=== PATIENT | male | born 1950 | race Caucasian/White ===

== ENCOUNTER 2023-02-07 07:43 | Observation (INO) ==
--- NOTE | 2023-01-18 10:21 | PAT Medication Instructions ---
Medication Instructions Date of Service January 18, 2023 Home Medications Medication Instructions Recorded clopidogrel 75 mg tablet (Plavix) 75 mg PO Q2D #45 tabs 03/23/22 losartan 100 mg tablet 100 mg PO HS #90 tabs 06/21/22 nitroglycerin 0.4 mg sublingual 0.4 mg sublingual UD PRN Chest 01/17/23 tablet Pain #25 tabs multivitamin (Multiple Vitamins tablet) 1 tab PO QAM alpha lipoic acid 600 mg capsule 600 mg PO HS aspirin 81 mg tablet,delayed release (Carolin Low Dose Aspirin) 81 mg PO QAM cyanocobalamin (vitamin B-12) 5,000 mcg sublingual tablet (Vitamin B-12) 5,000 mcg PO QAM vitamin B complex 1 tab PO QAM clopidogrel 75 mg tablet (Plavix) 75 mg PO Q2D losartan 100 mg tablet 100 mg PO HS atorvastatin 40 mg tablet 40 mg PO HS nitroglycerin 0.4 mg sublingual tablet 0.4 mg sublingual UD PRN Continue as directed nitroglycerin 0.4 mg sublingual tablet 0.4 mg sublingual UD PRN(if needed) ASK your prescriber and surgeon aspirin 81 mg tablet,delayed release (Carolin Low Dose Aspirin) 81 mg PO QAM clopidogrel 75 mg tablet (Plavix) 75 mg PO Q2D (in order for spinal or epidural anesthesia, Plavix needs to be stopped 72 hours/3 days before surgery. Please check if okay with doctor that prescribes this to you) STOP taking 2 weeks before surgery (or as soon as possible if surgery is within 2 weeks) DO NOT take the morning of surgery multivitamin (Multiple Vitamins tablet) 1 tab PO QAM cyanocobalamin (vitamin B-12) 5,000 mcg sublingual tablet (Vitamin B-12) 5,000 mcg PO QAM vitamin B complex 1 tab PO QAM Take evening before surgery losartan 100 mg tablet 100 mg PO HS atorvastatin 40 mg tablet 40 mg PO HS Other Notes NOTHING TO EAT OR DRINK AFTER MIDNIGHT. If you have any questions please call us at [phone] or [phone] or [phone] or [phone]
--- NOTE | 2023-01-22 15:59 | Anesthesiology Consultation ---
Date of Service January 22, 2023 Assessment & Plan (1) Encounter for pre-operative examination: Chart Review Chart Review: Acceptable Risk for Surgery (pending cardio and PCP clearance ) and Patient seen in Pre Admission Testing - Awaiting cardio clearance 02/06/23 ([place]) - Awaiting PCP clearance 02/06/23 ([place]) - Per cardio workload message 01/22/23= "Yes, okay to hold Plavix for 7 days" (l/m for patient) - Discussed with Dr. Dickerson- patient is NOT an OPJ candidate due to cardiac history (surgeon's office informed) Per PAT appt on 01/22/23, no recent illness/disease exposures, illness related symptoms, or recent illness/disease positive tests. Will leave to surgeon's discretion if preop Covid testing needed Teaching & Discussion Pre-Anesthesia Teaching/Discussion Notes: Instructed NPO after midnight before surgery,except medications with 15 cc of water. Medication instructions provided according to the PAT guidelines. History Surgery Operation Date: 02/07/23 11:00 Proposed Procedures p Right Total Hip Arthroplasty - Con Steele MD Height/Weight Height: 6 ft 2 in Weight: 82.1 kg Allergies Allergy/AdvReac Type Severity Reaction Status Date / Time No Known Allergies Allergy Verified 01/17/23 15:25 Medications Home Medications Medication Instructions Recorded Confirmed Last Taken multivitamin (Multiple Vitamins 1 tab PO QAM 02/13/19 01/17/23 09/17/20 tablet) alpha lipoic acid 600 mg capsule 600 mg PO HS 09/17/20 01/17/23 09/16/20 aspirin 81 mg tablet,delayed 81 mg PO QAM 09/17/20 01/17/23 01/17/22 release (Carolin Low Dose Aspirin) cyanocobalamin (vitamin B-12) 5,000 mcg PO QAM 09/17/20 01/17/23 09/17/20 5,000 mcg sublingual tablet (Vitamin B-12) vitamin B complex 1 tab PO QAM 09/17/20 01/17/23 09/17/20 clopidogrel 75 mg tablet (Plavix) 75 mg PO Q2D #45 tabs 03/23/22 01/17/23 Unknown losartan 100 mg tablet 100 mg PO HS #90 tabs 06/21/22 01/17/23 Unknown atorvastatin 40 mg tablet 40 mg PO HS 01/17/23 01/17/23 Unknown nitroglycerin 0.4 mg sublingual 0.4 mg sublingual UD PRN Chest 01/17/23 01/17/23 Unknown tablet Pain #25 tabs Past Medical History Medical History Idiopathic peripheral neuropathy Bilateral feet- stable Arthritis History of prediabetes Diet controlled CAD (coronary artery disease) Stents x3 (2010) to LAD Follows by Dr. Massey Dyslipidemia HTN (hypertension) Exercise / Class Metabolic Activity II 4-5 Yardwork/Stairs/Walk up hill (one flight of stairs- no chest pain or SOB ) Past Family History Family History Father Hypertension Other No family history of adverse response to anesthesia Past Surgical History Surgical History H/O foot surgery rt neuroma removed Hx of vasectomy [place] teeth removed History of heart artery stent 2010 > 3 stents History of colonoscopy S/P laparoscopic hernia repair inguinal Past Anesthesia History No Hx of Anesthesia Complications and No Family Hx of Anesthesia Complications History of PONV No Hx of PONV and No Hx of Motion Sickness Social History Smoking Status: Never smoker Do You Dip or Chew Tobacco: No Hx Alcohol Use: Yes Alcohol type: beer and wine alcohol intake frequency: holidays/special occasions only Hx Substance Use: No substance use type: does not use Review of Systems - Hx snoring - no witnessed apnea- no hx of sleep study Patient denies chest pain, shortness of breath, dyspnea on exertion, reflux, cough, wheezing, palpitations. No hx of seizures, stroke, VT. No hx of blood clots or blood transfusions Physical Exam Vital Signs VITALS BP 146/74 P 60 TEMP 98.1 SP02 99% RESP 16 Constitutional no acute distress ENMT Mouth: no TMJ clicking Thyromental Distance: < 3.5 Finger Breadths (3.0) Mallampati Class: II Crowns to molars and side teeth Neck + limited neck extension Respiratory normal respiratory effort; no respiratory distress Auscultation: lungs clear to auscultation bilaterally; no wheezes Cardiovascular Rate/Rhythm: regular rate and regular rhythm Heart Sounds: no murmur Vessels: no carotid bruit Musculoskeletal Spine: no pain with cervical ROM Extremities: extremities normal to inspection Psychiatric Orientation: alert Lab Results Anesthesia Preop Results Results Anesthesia Widget: WBC 7.01 K/ul (4.8-10.8) 01/22/23 Hgb 14.3 g/dl (14.0-18.0) 01/22/23 Hct 43.1 % (42.0-52.0) 01/22/23 Plt 174 K/uL (130-400) 01/22/23 Na 138 mmol/L (136-145) 01/22/23 K 4.0 mmol/L (3.5-5.1) 01/22/23 Cl 102 mmol/L (98-107) 01/22/23 CO2 31 mmol/L (21-32) 01/22/23 BUN 16 mg/dl (6-23) 01/22/23 Creat 0.95 mg/dl (0.6-1.4) 01/22/23 Glucose Level 91 mg/dl (70-99(Fasting)) 01/22/23 PT 10.8 Seconds (9.0-12.0) 01/22/23 PTT 28.6 Seconds (21.0-31.0) 01/22/23 INR 1.0 (0.9-1.1) 01/22/23 HA1c 6.0 % (4.5-5.6) H 01/22/23 Urine Color Dark Yellow 01/22/23 Urine Appearance Clear (Clear) 01/22/23 Urine pH 7.5 (4.5-7.5) 01/22/23 Urine Specific [place] 1.022 (1.000-1.030) 01/22/23 Urine Protein Negative (Negative) 01/22/23 Urine Glucose (UA) Negative (Negative) 01/22/23 Urine Ketones Negative (Negative) 01/22/23 Urine Blood Negative (Negative) 01/22/23 Urine Nitrite Negative (Negative) 01/22/23 Urine Bilirubin Negative (Negative) 01/22/23 Urine Urobilinogen Negative (Negative) 01/22/23 Urine Leukocyte Esterase Negative (Negative) 01/22/23 Blood Type A Positive 01/22/23 Antibody Screen NEGATIVE 01/22/23 Testing Electrocardiogram Date: 01/22/23 Findings: + SB @ (55bpm) Minimal voltage criteria for LVH, may be normal variant When compared to EKG from September 17, 2020- no significant change was found per cardio Chest X-Ray Date: 01/22/23 Findings: + NAD FINDINGS: Cardiac mediastinal and hilar silhouettes are within normal limits. Atherosclerosis of the aorta. No pneumothorax, pleural effusion, airspace consolidation or pulmonary edema. Degenerative changes of the shoulders and spine. Other Testing Lower arterial ultrasound 12/20/2022 = no evidence of significant lower extremity arterial occlusive disease bilaterally Neck CTA 09/17/20= Approximately 50% stenosis at the origin and V2 segment of the right vertebral artery. Atherosclerotic involvement of bilateral internal and external carotid arteries are seen without hemodynamically significant stenosis. Head CTA 09/17/20= Mild atherosclerotic involvement without hemodynamically significant stenosis. Irregular lumen of the proximal aspect of the right MCA without significant stenosis.
[~2023-02-07 07:43] MED LIST: ACETAMINOPHEN 500 MG TAB PO SCH; BUPIVACAINE 0.5 % 5 MG/1 ML PF 10ML VIAL ONE; CeleBREX 200 MG CAP PO SCH; FAMOTIDINE 20 MG TAB PO SCH; LR 500ML BOLUS, THEN 15ML/HR IV SCH; LR 60ML/HR IV SCH; MIDAZOLAM HCL 1 MG/ML 2ML VIAL ONE; ROPIVACAINE 0.5% HCL/PF 150 MG, BUPIVACAINE 0.75% MPF 20 ML, EPINEPHrine 0.15 MG, Ketor... INFIL SCH; Scopolamine 1 MG TDSY TD SCH; TRANEXAMIC ACID 1,000 MG **IV Intra-op IV SCH; TRANEXAMIC ACID 1,000 MG **IV Pre-op IV SCH; ceFAZolin 2000MG 2,000 MG/15 ML SYR IV SCH; dexAMETHasone 4 MG TAB PO SCH; traMADol HCL 50 MG TABLET PO SCH
[2023-02-07] MEDS ORDERED: fentaNYL citrate PF 100 MCG/2 ML VIAL ONE (07:44)
--- OUTSIDE RECORDS SUMMARY | 2023-02-07 07:59 | External Medical Summary | Continuity of Care Document ---
Author Name Unknown Organization [facility] [address] [place] [id number] Care Team Providers Care Company Marker Name Role Phone Geraldo Reyes Primary Care Physician [phone] Encounter [facility] [id number] Date(s): 02/04/23 - 02/04/23 [facility] [address] [address] [phone] Encounter Diagnosis Pre-op exam(Discharge Diagnosis) - 02/04/23 Body mass index [BMI] 23.0-23.9, adult(Discharge Diagnosis) - 02/04/23 CAD(Discharge Diagnosis) - 02/04/23 PURE HYPERCHOLESTEROLEMIA(Discharge Diagnosis) - 02/04/23 Prediabetes(Discharge Diagnosis) - 02/04/23 Right hip pain(Discharge Diagnosis) - 02/04/23 Discharge Disposition: Home or Self Care Attending Physician: DO Burns Stephanie Marie Referring Physician: MD Cedric, Con Quiles Allergies, Adverse Reactions, Alerts No Known Allergies Assessment and Plan Extracted from: Title:FCM - pre-op exam for right WALTER Author:DO Burns Stephanie Marie Date:02/04/23 1.Pre-op exam Robinis seen for akash-operative risk stratification. They report no cardiac symptoms at rest or on exertion. He has cardiac pre-op clearance pending with his binder selector scheduled on 02/06. We diddiscuss risks of surgery includingmajor adverse cardiac event, such as PR, cardiacarrest, or . These risks, along with the risk of akash-operative stroke, were discussed with the patient, in light of the benefits of possible surgery.Robin wishes to proceed with the operation. Excluding cardiac pre-op examination with his cardiologistwhich is currentlyscheduled, from PCP perspective Robin is medically optimized for surgery. 2.CAD Follows with cardiology. Stable. No acute changes. See their pre-op examination documentation as scheduled on Saturday, 02/06. 3.PURE HYPERCHOLESTEROLEMIA Continue atorvastatin. 4.Prediabetes Continue monitoring. Most recent A1c 5.8% in August 2022.Encouraged diet and exercise regimen appropriate for patient age and condition. 5.Right hip pain Patient is scheduled for right WALTER on 02/07. Inclusive of time spent reviewing the medical record, [id number] time with the patient, and time spent in documentation, the total minutes spent on this encounter today was 35. Immunizations Given and Recorded Vaccine Date Status Refusal Reason zoster vaccine, inactivated 1 03/11/19 Recorded zoster vaccine, inactivated 03/11/18 Recorded pneumococcal 23-valent vaccine 03/22/17 Given pneumococcal 13-valent vaccine 02/24/16 Given tetanus/diphtheria/pertuss, acel (Tdap) 02/11/15 G iven zoster vaccine live 06/28/12 Recorded tetanus toxoids-diphtheria, Td (Adult) 04/16/07 Re corded 1Result Comment: #2 Medications Alpha Lipoic 300 mg oral tablet Start: 07/20/20 10:35:00 EDT, Note to Pharmacy: take 2 daily Start Date: 07/20/20 Status: Ordered Aspirin Low Dose 81 mg oral enteric coated tablet Start: 04/14/10 15:25:00, 1 tab, PO, Daily, tab Start Date: 04/14/10 Status: Ordered atorvastatin 40 mg oral tablet Start: 07/16/22 9:25:00 EDT, 1 tab, PO, Daily Start Date: 07/16/22 Status: Ordered losartan 100 mg oral tablet Start: 07/16/22 9:25:00 EDT, 1 tab, PO, Daily Start Date: 07/16/22 Status: Ordered Plavix 75 mg oral tablet Start: 04/14/10 15:25:00, See Instructions, 1 tab every other day Start Date: 04/14/10 Status: Ordered Vitamin B Complex Start: 07/20/20 10:35:00 EDT Start Date: 07/20/20 Status: Ordered Vitamin B12 500 mcg oral tablet Start: 07/20/20 10:35:00 EDT, 1 tab, PO, Daily Start Date: 07/20/20 Status: Ordered Mental Status 02/04/23 Barriers to Learning one year None evide nt Mandatory Health Literacy Documentation Yes Health Literacy Communication Barriers N ever Primary Language Citizen Of [place] Problem List Condition Confirmation Course Effective Dates Status H ealth Status Informant Cardiovascular disease Confirmed Active Healthcare maintenance Confirmed Active Hereditary and idiopathic neuropathy Confirmed Active Right hip pain Confirmed Active Traumatic ecchymosis of foot Confirmed Active Right lumbar radiculopathy Confirmed Active Peripheral polyneuropathy Confirmed Active Prediabetes Confirmed Active Lumbar foraminal stenosis Confirmed Active Tubular adenoma of colon Confirmed Active Weight monitoring Confirmed Active Diagnosis Diagnosis Type Effective Dates Health Status Clinical Service Informant CAD Discharge Diagnosis 02/04/23 PURE HYPERCHOLESTEROLEMIA Discharge Diagnosis 02/04/23 Prediabetes Discharge Diagnosis 02/04/23 Right hip pain Discharge Diagnosis 02/04/23 Body mass index [BMI] 23.0-23.9, adult Discharge Diagnosis 02/04/23 Non-Specifie d Pre-op exam Discharge Diagnosis 02/04/23 Procedures Procedure Date Related Diagnosis Body Site Status Colonoscopy 1, 2 07/26/22 Complete d Lumbar epidural injection 01/22/22 Completed MRI of lumbar spine 3 10/20/[address] of head 4 09/17/20 Completed X-ray of left foot 5 08/05/20 Comp leted Colonoscopy 6 06/21/17 Completed Laparoscopic repair of ingui nal hernia 7 05/31/14 Completed 1 Stent placed 03/[address] angio of head w con [address] of neck with con 9 Com pleted Neuromo removal to right foot 10 Completed 1COLO to cecum, 3 mm TC polyp CF, 4 mm sigmoid polyp CS, diverticulosis 2Pathology results demonstrated 2 tubular adenoma. Repeat colonoscopy in 5 years 3Mild multilevel degenerative disc disease and moderate facet arthrosis within the lumbar spine. Platent central canal. Moderate multilevel neural foraminal stenosis 1.9 cm focus of increased T2 signal along the right anterior aspect of the inferior endoplate of L2. This is likely degerative and likely reflects discogenic change. Marrow edema from nondisplaced fracture could appear similar althouh is considered less likely. 4No acute intracranial hemorrhage no midline shift or space occupying lesions 5[facility] Impression: 1. No acute bony abnormality is identified 2. Degenerative change and heel spurs 6The entire examined colon is normal. The examined portion of the ileum was normal. The distal rectum and anal verge are normal on retroflexion view. No specimens collected. 7Right 8mild atherosclerotic involvment without hemodynamically significant stenosis 91. 50 stenosis at the origin and V2 segment of the right vertebral artery [id number] Vital Signs Most recent to oldest [Reference Range]: 1 Height 189 cm (02/04/23 8:03 AM) Patient Weight 82.6 kg (02/04/23 8:03 AM) Body Mass Index 23.12 kg/m2 (02/04/23 8:03 AM) Heart Rate 69 bpm (02/04/23 8:03 AM) Respiratory Rate 12 br/min (02/04/23 8:03 AM) Blood Pressure 158/78mmHg (02/04/23 8:03 AM) Cuff Pulse Pressure 80 mmHg (02/04/23 8:03 AM) Social History Social History Type Response Smoking Status Never smoked cigaret kavita Sex Male FCM Outpt Note * DO Burns Stephanie Marie: PERFORM Event Display: FCM Outpt Note Authored Date: Chief Complaint preop clearance total right hip replacement History of Present Illness Preoperative evaluation Requested by/Surgeon: Dr. Steele for right WALTER scheduled for this upcoming , 02/07 Planned surgery:intermediate risk (intraperitoneal, intrathoracic, CEA, head/neck, ortho, prostate) Planned anesthesia:general Exercise tolerance:4-10 METs (golfing, walking) Bleeding tendency/history: on Plavix since 2010 after having cardiac stents placed; follows withcardiology and has cardiology pre-op appt as noted below; no abnormal hx of bleeding Substance use per social history in EHR Prior response to anesthesia: none Revised Cardiac Risk Index: Score [1] [_] High Risk Surgery [x] Ischemic Heart Disease [_] History of CHF [_] History of cerebrovascular disease [_] Insulin therapy for DM [_] Pre-op Cr >2 Follows w/ Dr. Massey for cardiology; last had testing about 1 month ago and everything was good at that time. Has pre-op appointment with cardiology on 02/06/30 (the day prior to scheduled orthopedic surgery). Takes BP at home. Typically in 130s/70s. Physical Exam Vitals & Measurements HR:69(Monitored) RR:12 BP:158/78 SpO2:98% HT:189cm WT:82.6kg WT:82.600kg(Dosing) BMI:23.12 PHQ2 Data(Data Documented on:02/04/2023 08:03) Emotional health assessment NEGATIVE GENERAL: No acute distress. Well developed and well nourished. Vital signs reviewed as above. EYES: EOMI. Anicteric sclerae. HENT: Moist mucous membranes. RESPIRATORY: Clear to auscultation bilaterally.No wheezing, rales, orrhonchi. CARDIOVASCULAR: Regularrate and rhythm. ABDOMEN: Soft,[id number]. Normal bowel sounds. EXTREMITIES: No gross deformities. SKIN: Warm, dry. NEUROLOGIC: Alert and oriented. Normal speech. No gross focal neurological deficits. PSYCHIATRIC: Cooperative. Appropriate mood and affect. Assessment/Plan 1.Pre-op exam Robinis seen for akash-operative risk stratification. They report no cardiac symptoms at rest or on exertion. He has cardiac pre-op clearance pending with his binder selector scheduled on 02/06. We diddiscuss risks of surgery includingmajor adverse cardiac event, such as PR, cardiacarrest, or . These risks, along with the risk of akash-operative stroke, were discussed with the patient,in light of the benefits of possible surgery.Robin wishes to proceed with the operation. Excluding cardiac pre-op examination with his cardiologistwhich is currentlyscheduled, from PCP perspective Robin is medically optimized for surgery. 2.CAD Follows with cardiology. Stable. No acute changes. See their pre-op examination documentation as scheduled on Saturday, 02/06. 3.PURE HYPERCHOLESTEROLEMIA Continue atorvastatin. 4.Prediabetes Continue monitoring. Most recent A1c 5.8% in August 2022.Encouraged diet and exercise regimen appropriate for patient age and condition. 5.Right hip pain Patient is scheduled for right WALTER on , 02/07. Inclusive of time spent reviewing the medical record, [id number] time with the patient, and time spent in documentation, the total minutes spent on this encounter today was 35. Problem List/Past Medical History Ongoing CAD Cardiovascular disease Healthcare maintenance Hereditary and idiopathic neuropathy Lumbar foraminal stenosis Peripheral polyneuropathy Prediabetes PURE HYPERCHOLESTEROLEMIA Right hip pain Right lumbar radiculopathy Traumatic ecchymosis of foot Tubular adenoma of colon UNSPECIFIED INFLAMMATORY AND TOXIC NEUROPATHIES Weight monitoring Procedure/Surgical History Colonoscopy (07/26/2022)Lumbar epidural injection (01/22/2022)MRI of lumbar spine (10/20/2021)CT of head (09/17/2020)X-ray of left foot (08/05/2020)Colonoscopy (06/21/2017)Laparoscopic repair of inguinal hernia (05/31/2014)Neuromo removal to right foot1 Stent placed 03/2010CT of neck with conCT angio of head w con Medications alpha-lipoic acid(Alpha Lipoic 300 mg oral tablet) aspirin(Aspirin Low Dose 81 mg oral enteric coated tablet), 1 tab, PO, Daily atorvastatin(atorvastatin 40 mg oral tablet), 40 mg= 1 tab, PO, Daily clopidogrel(Plavix 75 mg oral tablet), See Instructions cyanocobalamin(Vitamin B12 500 mcg oral tablet), 500 mcg= 1 tab, PO, Daily losartan(losartan 100 mg oral tablet), 100 mg= 1 tab, PO, Daily multivitamin(Vitamin B Complex) Allergies NKA Social History Smoking Status Never smoked cigarettes Alcohol Use:Current Frequency:1-2 times per month Employment/School Status:Employed Substance Abuse - Denies Substance Abuse Tobacco - Denies Tobacco Use Family History Family history is unknown Immunizations Vaccine Date Status zoster vaccine, inactivated 2019 Recorded Comments : #2 zoster vaccine, inactivated 2018 Recorded pneumococcal 23-valent vaccine 03/22/2017 Given pneumococcal 13-valent vaccine 02/24/2016 Given tetanus/diphtheria/pertuss, acel (Tdap) 02/11/2015 Given zoster vaccine live 06/28/2012 Recorded tetanus toxoids-diphtheria, Td (Adult) 04/16/2007 Recorded Recommendations Health Maintenance Pending(in the next year) OverDue Adult Influenza Vaccine due09/08/22and every 1year Due Adult COVID-19 Vaccination due02/06/23Unknown Frequency Hepatitis C Screening due02/06/23One-time only Shingles Vaccine due02/06/23One-time only Due In Future Medicare Annual Wellness Visit not due until07/24/23and every 1year Body Mass Index not due until02/04/24and every 1year Satisfied(in the past 1 year) Satisfied Body Mass Index on02/04/23.Satisfied by SADE Michel Paul Lipid Screening on08/13/22.Satisfied by Contributor_system, [id number] Medicare Annual Wellness Visit on07/23/22.Satisfied by DO Reyes Franklin J Electronic Signature on File Electronically Reviewed/Signed by: Michelle Burns DO Author Signature Dt/Tm:02/06/2023 09:07 AM Department of Family Medicine SMB Patient Care team information Care Team Personnel Name: DO Reyes Franklin J Position: Physician - Family Med Member Role: Primary Care Provider Address: Address: [facility] [address] [address] Name: Yaw Mccullough Position: HIS Supervisor_P Member Role: HIS Lifetime Care Team Related Persons Name: JULY CRISTINA Address: home [address], [place] [id number]
--- NOTE | 2023-02-07 08:37 | History & Physical Bridge Note ---
Date of Service February 07, 2023 History & Physical Bridge Note I have examined the patient, reviewed the History & Physical and in the interval since the performance of the History & Physical I have noted the following changes of clinical significance: note was made of a 1x2 cm reddish purple cheryle on his buttock. Appears to be a bruise since he was on plavix, although he doesn't remember hitting it on anything. No surrounding erythema or evidence of infection. It's not itchy. Discussed with patient that this does not appear infected, so should be safe to proceed with minimal increase in risk. He would like to proceed, which is reasonable. Otherwise, no changes noted
[2023-02-07] MEDS ORDERED: ORTHO JOINT ANESTHETIC ONE (08:47)
[2023-02-07] MEDS ORDERED: ATROPINE SULFATE 0.1 MG/ML 10ML SYR IV PRN (09:09)
[2023-02-07] MEDS ORDERED: ePHEDrine sulfate 50 MG/ML AMP IV PRN (09:09)
[2023-02-07] MEDS ORDERED: LABETALOL HCL IV 5 MG/ML 20ML IV PRN (09:09)
[2023-02-07] MEDS ORDERED: fentaNYL citrate PF 100 MCG/2 ML VIAL IV PRN (09:09)
[2023-02-07] MEDS ORDERED: PHENYLEPHRINE 100MCG/ML 5ML SYR IV PRN (09:09)
[2023-02-07] MEDS ORDERED: ONDANSETRON INJ 2 MG/ML 2 ML VIAL IV PRN ×2 (09:09→11:11)
[2023-02-07] MEDS ORDERED: FLUCONAZOLE 200 MG/100 ML BAG IV ONE (09:28)
[2023-02-07] MEDS ORDERED: PHENYLEPHRINE 100MCG/ML 10ML SYR IV ONE (10:12)
[2023-02-07] MEDS ORDERED: LIDOCAINE 2% 2 ML VIAL/AMP(20MG/ML) INFIL ONE (10:12)
[2023-02-07] MEDS ORDERED: ONDANSETRON INJ 2 MG/ML 2 ML VIAL ONE (10:12)
[2023-02-07] MEDS ORDERED: PHENYLEPHRINE HCL 10 MG/ML VIAL ONE (10:12)
[2023-02-07] MEDS ORDERED: NALOXONE HCL 0.4 MG/1 ML VIAL/CARP IV PRN (11:11)
[2023-02-07] MEDS ORDERED: diphenhydrAMINE 50 MG/ML VIAL IV PRN (11:11)
[2023-02-07] MEDS ORDERED: METOCLOPRAMIDE HCL INJ 5 MG/ML 2 ML VIAL IV PRN (11:11)
[2023-02-07] MEDS ORDERED: MAGNESIUM HYDROXIDE SUSP 30 ML UDC PO PRN (11:11)
[2023-02-07] MEDS ORDERED: TAMSULOSIN HCL 0.4 MG CAP PO PRN (11:11)
[2023-02-07] MEDS ORDERED: ALUMINUM/MAGNESIUM SUSP 30 ML UDC PO PRN (11:11)
[2023-02-07] MEDS ORDERED: bisacodyL 10 MG SUPP PR PRN (11:11)
[2023-02-07] MEDS ORDERED: oxyCODONE HCL IR 5 MG TAB (IMMEDIATE RELEASE) PO PRN (11:11)
--- NOTE | 2023-02-07 11:11 | Operative Report ---
Post Operative Report Pre & Post Diagnosis Operation Date: 02/07/23 09:10 Pre-Op Diagnosis: Right hip osteoarthritis. Post-Op Diagnosis: Right hip osteoarthritis. I identified the patient and participated in the time-out.: Yes Procedure Operation Date: 02/07/23 09:10 Actual Procedures p Right Total Hip Arthroplasty--Uncemented(Left) - Con Steele MD Surgeon Con Steele MD Food Prep Worker Diane Zarate PAPetra Estimated Blood Loss 100 Findings Consistent with Post-Op Diagnosis Specimens femoral head Description of Procedure I was present during the case assisting with positioning, prepping, draping, wound retraction, wound closure, dressing and abduction pillow placement. No fellow present. Please see Dr. Steele procedure note for specifics of the case. I attest to the content of the Intraoperative Record and any orders documented therein. Any exceptions are noted below.
--- NOTE | 2023-02-07 11:13 | Operative Report ---
Post Operative Report Pre & Post Diagnosis Operation Date: 02/07/23 09:10 Pre-Op Diagnosis: Right hip osteoarthritis. Post-Op Diagnosis: Right hip osteoarthritis. I identified the patient and participated in the time-out.: Yes Procedure Operation Date: 02/07/23 09:10 Actual Procedures p Right Total Hip Arthroplasty--Uncemented(Left) - Con Steele MD Surgeon Con Steele MD Html Developer DOLORES Zarate PA-C. No resident or fellow was available to assist. Estimated Blood Loss 100 Findings Consistent with Post-Op Diagnosis Specimens Right femoral head Anesthesia Type Spinal MAC Complications none Disposition Disposition: Recovery Room Indications 72-year-old gentleman with right hip arthritis refractory to conservative management. X-rays demonstrate joint space narrowing, subchondral sclerosis, and osteophyte formation. I had a long discussion with him about the risks and benefits of surgery, alternatives to surgery, and expected outcomes. After reviewing all these he elected to proceed with surgery. All questions were answered. Informed consent was signed. Description of Procedure Patient was identified in the preoperative holding area where the surgical site, right hip, was marked. Inspection of the skin revealed a red cheryle which was not itchy or painful. Did not appear infected however out of abundance of caution for possible fungal infection we did elect to give him IV fluconazole intraoperatively. A spinal anesthetic was placed, then the patient was brought back to the main operating room, placed in the operating table and moved into the lateral decubitus position. Axillary roll was placed. All bony prominences were padded. Perioperative antibiotics and tranexamic acid 1 gram IV were administered in addition to the fluconazole. The operative extremity was prepped and draped in the normal sterile fashion. Prior to incision a multidisciplinary timeout was called. All in the room were in agreement. We began by making an incision for a posterior approach to the hip. We dissected down through subcutaneous tissues to the level of the fascia. The fascia was incised in line with the incision. Charnley bow was placed. Fatty tissue was reflected posteriorly off the back of the greater trochanter to expose the piriformis and short external rotators of the hip. Quadratus femoris was taken off the femur subperiosteally. The piriformis and short external rotators were dissected off the posterior aspect of the hip. A box cut was made in the capsule. Inferior hip capsule was released off the femur. The femoral head was dislocated. The femoral neck cut was made at our preoperative template. The acetabulum was then exposed. The labrum was sharply excised. Contents of the cotyloid fossa were removed with electrocautery. We then began reaming at a size 8 mm less than our preoperative template. We reamed up by [address] the way up to a size 60 mm cup. This gave us good bleeding cancellus bone circumferentially. The acetabulum was then irrigated out and dried. The real Novato Gription cup was then impacted down into position with 45 degrees of lateral opening and 25 degrees of anteversion. Two cancellous bone screws were placed up into the ilium. Excellent fixation was obtained. A trial liner for a 36 mm femoral head was then placed. Next we turned our attention to the femur. The lateral neck was removed with a box osteotome. Intramedullary guide was used to establish the intramedullary canal. We then broached all the way up to a size 10. We began trialing with a high offset neck and a +5 head. Hip was reduced. Leg lengths were close to symmetric. The hip was stable in extension and external rotation, and stable in the sleeper position. At 90 degrees of hip flexion the hip could be internally rotated 35 degrees before levering out of the cup. I wanted to get a little bit better stability, therefore the femoral head neck segment was removed and the acetabulum was reexposed. The 36 neutral trial was removed and we switched this out for a +4 face changing liner with the high side placed posterior superiorly. The same femoral head neck segment was then reattached to the femoral trial and the hip was reduced. Leg lengths were symmetric. Remained stable in extension and external rotation. Still was stable in the sleeper position. At 90 degrees hip flexion he could be internally rotated 50 degrees prior to levering out of the cup. I was much more happy with this stability exam. Therefore, the hip was dislocated and the femoral trial was removed. The acetabulum was re- exposed, and the trial liner was removed. Vendor hole eliminator screw was placed. A +4 face changing Altrx polyethylene liner for a 36 mm femoral head was then impacted into the shell at the same position as the femoral trial. The locking mechanism was checked to ensure that it had engaged which it had. The femur was re-exposed. The femoral canal was irrigated and dried. The real size 10 high offset Actis femoral stem was opened up. This was impacted down into position. The 36 mm ceramic femoral head with +5 mm offset was opened up and gently impacted down onto the trunnion. The hip was atraumatically reduced. Another 1 gram of IV tranexamic acid was started prior to closure. The wound was irrigated out with sterile Betadine solution. The periarticular injection cocktail was then placed. The short external rotators, piriformis, and posterior capsule were repaired through drill holes in the greater trochanter using #2 Vicryl. The fascia was run with a looped #1 PDS. The subcutaneous layer was closed with #1 PDS. The dermal layer was closed with 2-0 Vicryl. Zip line was used for the skin followed by a Silverlon dressing. A compressive dressing was then placed. The patient was then rolled supine. Leg lengths were rechecked and were symmetric. An abduction pillow was placed. Sedation was lifted and the patient was transferred to the recovery room in stable condition. Summary of implants: Depuy Novato Gription Acetabular Shell Sector Cup, 60 mm outer diameter 2 Novato Cancellous bone screws, 6.5 x 40 and 25 mm Vendor hole eliminator Novato Altrx Polyethylene Acetabular Liner, +4 face changing, with a 36 mm inner diameter DePuy Actis collared cementless Femoral stem, 12/14 taper, size 10 high offset 36 mm ceramic femoral head with +5 offset Postoperative course: Patient will be admitted overnight from the recovery room. Patient will be weightbearing as tolerated with posterior hip precautions. Restart Plavix and aspirin tomorrow for DVT prophylaxis. Will give him 1 week of fluconazole and recheck his skin at the 1 week follow-up. I attest to the content of the Intraoperative Record and any orders documented therein. Any exceptions are noted below.
[2023-02-07] MEDS ORDERED: SODIUM CHLORIDE 0.9% 1,000 ML IV SCH (11:15)
[2023-02-07] MEDS ORDERED: NITROGLYCERIN SL 0.4 MG/TAB TAB SL PRN (11:15)
--- NOTE | 2023-02-07 12:22 | Anesthesiology Progress Note ---
Date of Service February 07, 2023 Anesthesia Post Procedure Vital Signs Vital Signs: Temp Pulse Pulse Resp BP Pulse Ox O2 Del Method 02/07/23 12:05 36.3 C L 51 L 17 103/55 L 100 Room Air 02/07/23 11:55 36.3 C L 60 14 114/54 L 100 Room Air 02/07/23 11:45 45 L 8 L 99/49 L 100 Oxymask 02/07/23 11:35 49 L 10 L 100/48 L 100 Oxymask 02/07/23 11:25 51 L 15 108/49 L 100 Oxymask 02/07/23 11:15 48 L 9 L 95/46 L 100 Oxymask 02/07/23 11:06 36.2 C L 58 L 16 110/49 L 100 Oxymask 02/07/23 08:42 36.5 C 70 20 154/75 H 99 Room Air O2 Flow Rate 02/07/23 12:05 02/07/23 11:55 02/07/23 11:45 3 02/07/23 11:35 3 02/07/23 11:25 5 02/07/23 11:15 5 02/07/23 11:06 7 02/07/23 08:42 Transfer of Care Handoff Completed per policy Notes Mental Status: alert / awake / arousable Patient Amnestic to Procedure: Yes Nausea / Vomiting: adequately controlled Pain: adequately controlled Airway Patency, RR, SpO2: stable & adequate BP & HR: stable & adequate Hydration State: stable & adequate Neuraxial Anesthesia: was administered and sensory block is resolving Anesthetic Complications: no major complications apparent and Pt Satisfied with anesthetic care Notes: The patient did well. He is moving both legs. I spoke to him to watch for any new onset numbness or weakness starting tomorrow since he takes clopidogrel and required more than one attempt for his spinal. The patient was told to let his nurse know or go to the ER immediately for any new onset of numbness or weakness. He agrees with this plan.
--- NOTE | 2023-02-07 13:15 | XRay Report ---
SINGLE VIEW PELVIS CLINICAL HISTORY: Postoperative examination. FINDINGS: 2 AP, portable, supine views of the hips and lower pelvis are compared to study dated 01/22. The skeletal structures are osteopenic. A bipolar right hip arthroplasty is in near anatomic a lignment. At least 2 cortical lag screws transfix the acetabular cup. No acute fracture is seen. Subc utaneous gas and soft tissue edema overlying the right hip are expected postsurgical changes. Moderat e arthritic change and joint space narrowing seen in the left hip. There is near complete bony fusion of the pubic symphysis. Surgical clips project over the scrotum. IMPRESSION: Expected postsurgical findings status post right hip arthroplasty. No acute fracture is s een. Electronically signed by: Bebeto Cardona M.D. 02/07/2023 1:14 PM
[2023-02-07] MEDS: ACETAMINOPHEN 500 MG TAB PO SCH (14:53)
[2023-02-07] MEDS: KETOROLAC TROMETHAMINE 15 MG/ML VIAL IV SCH ×2 (14:53→17:36)
[2023-02-07] MEDS: Scopolamine CHECK PATCH PLACEMENT SCH (14:53)
[2023-02-07] MEDS ORDERED: TRANEXAMIC ACID / 0.7% NACL 1,000 MG/100 ML BAG IV SCH (18:00)
[2023-02-07] MEDS: ceFAZolin 2000MG 2,000 MG/15 ML SYR IV SCH (18:20)
[2023-02-07] MEDS: SENNA 8.6 MG TAB PO SCH (20:40)
[2023-02-07] MEDS: DOCUSATE SODIUM 100 MG CAP PO SCH (20:41)
[2023-02-07] MEDS: ATORVASTATIN 40 MG TAB PO SCH (20:41)
[2023-02-07] MEDS ORDERED: NON-FORMULARY MEDICATION (Alpha Lipoic Acid 600 mg Capsule) PO SCH (21:00)
[2023-02-07] MEDS ORDERED: LOSARTAN POTASSIUM 50 MG TAB PO SCH (21:00)
[2023-02-08] MEDS: KETOROLAC TROMETHAMINE 15 MG/ML VIAL IV SCH ×2 (02:23→06:00)
[2023-02-08] MEDS: ACETAMINOPHEN 500 MG TAB PO SCH ×3 (02:23→16:36)
[2023-02-08] MEDS: ceFAZolin 2000MG 2,000 MG/15 ML SYR IV SCH (02:23)
[2023-02-08] MEDS: Scopolamine CHECK PATCH PLACEMENT SCH ×3 (02:24→16:37)
[2023-02-08 07:15] LABS: Basophils # (auto) 0.01 K/uL (0.00-0.20); Basophils % (auto) 0.1 %; Hematocrit (blood only) 34.8 % (42.0-52.0); Immature Granulocytes # (auto) 0.14 K/uL (0.01-0.20); Immature Granulocytes % (auto) 0.8 %; Lymphocytes # (auto) 0.93 K/uL (1.20-3.40); Lymphocytes % (auto) 5.3 %; Mean Corpuscular Hemoglobin 30.5 pg (25.0-34.0); Mean Corpuscular Hgb Conc 34.5 g/dL (32.0-36.0); Mean Corpuscular Volume 88.3 fL (80.0-100.0); Mean Platelet Volume 11.2 fL (9.4-12.4); Monocytes # (auto) 1.17 K/uL (0.11-0.59); Monocytes % (auto) 6.6 %; Neutrophils # (auto) 15.42 K/uL (1.40-6.50); Neutrophils % (auto) 87.2 %; Platelet Count 156 K/uL (130-400); RDW Coefficient of Variation 12.9 % (11.5-14.5); RDW Standard Deviation 41.8 fL (36.4-46.3); Red Blood Count 3.94 M/uL (4.70-6.10); White Blood Count 17.67 K/ul (4.8-10.8)
[2023-02-08 07:40] LABS: BUN Creatinine Ratio 21.2 (10-20); Calcium 8.7 mg/dl (8.6-10.3); Creatinine Clr Calc Pharmacy 72.5 ml/min; Est GFR (African American) 82.2 ml/min; Est GFR (Non-African American) 70.9 ml/min; Potassium 4.4 mmol/L (3.5-5.1)
[2023-02-08] MEDS ORDERED: dexAMETHasone 4 MG TAB PO SCH (08:00)
[2023-02-08] MEDS: DOCUSATE SODIUM 100 MG CAP PO SCH ×2 (09:02→21:08)
[2023-02-08] MEDS: MULTIVITAMIN TAB PO SCH (09:03)
[2023-02-08] MEDS: VITAMIN B COMPLEX TAB PO SCH (09:03)
[2023-02-08] MEDS: CYANOCOBALAMIN (B-12) 2,500 MCG TABLET PO SCH (09:03)
[2023-02-08] MEDS: ASPIRIN 81 MG ECTAB PO SCH (09:03)
--- NOTE | 2023-02-08 09:25 | Discharge Summary ---
Date of Service February 08, 2023 Admission HPI Per Admitting Provider History of Present Illness Patient is a 72-year-old male here today for preoperative history and physical for right total hip arthroplasty with Dr. Steele. Patient complains of right sided back pain starting 1.5 years ago. He was following with Dr. Logan and has had 2 epidural injections without significant change in symptoms. He was then evaluated by Dr. Crawford who suggested it was a hip problem. When in a grocery store he is able to walk upright with the cart. He has difficulty putting on socks secondary to pain and will have groin pain with internal rotation. He previously had an ultrasound guided right femoroacetabular cortisone injection on 04/10/2022 without symptom relief. He also mentions bilateral leg weakness/fatigue with walking up stairs. He has a history of CAD and was evaluated by his compactor driver who did not see a vascular problem but is having further testing. [1] His symptoms have not changed since his last visit. Patient is not taking any pain medication. His pain keeps him up at night depending on which side he sleeps on and has experienced much throbbing in his lower leg. Patient has tried Gabapentin and Advil which was not successful in relieving his pain. He has much pain with walking, sitting for a prolonged period of time, and after golfing and playing pickleball. Patient has previously had a cortisone injection to his hip and back. He is currently on Plavix and has previously stopped this due to prior surgery. Patient denies history of MRSA and has no latex or rubber glove allergy. He does not have a pacemaker or diabetes. [1] he had 3 stents placed most recent March 2010. Admission Exam Per Admitting Provider Physical Exam Vitals & Measurements T: 36.6 C HR: 69 (Monitored) BP: 140/68 SpO2: 100% HT: 189 cm WT: 82 kg WT: 82.000 kg (Dosing) BMI: 22.96 General: Pt is well nourished, seated on the exam table AA&O, in NAD, calm and cooperative during exam HENT: Nontraumatic, no gross deformity, hearing and vision grossly in-tact, PERRL Heart: +S1, +S2, RRR, no murmurs appreciated Lungs: CTABL, no wheezing appreciated Focusing on the patient's right lower extremity: Palpable DP pulses, easier felt on left than right Palpable PT pulses Some hair loss on his toes ROM: Flexion 90/ Abduction 20/ External rotation 45/ Internal rotation 0 Positive Log roll Positive FABIR, knee is about 26 inches off the table Negative Stinchfield test No tenderness over greater trochanter [2] Principal Diagnosis Right hip osteoarthritis Discharge Exam Right hip: Outer dressing was removed. Silverlon is clean dry intact and left in place. Patient is able to perform active straight leg raise test. He is able to actively dorsi and plantarflex without issue. He has no pain with logroll testing. He does experience a slight twinge of pain with light passive internal rotation. He has no pain with passive hip flexion near 90 degrees or with external rotation. He is neurovascularly intact in the right lower extremity. His quad strength is 4 out of 5. Discharge Data Allergies Allergy/AdvReac Type Severity Reaction Status Date / Time No Known Allergies Allergy Verified 02/07/23 08:07 Procedures Performed Operation Date: 02/07/23 09:10 Actual Procedures p Right Total Hip Arthroplasty--Uncemented(Left) - Con Steele MD Hospital Course (1) S/P total hip arthroplasty: Patient had an uneventful overnight stay following total hip arthroplasty. He is doing very well this morning and very pleased with the results of surgery. Plan is to discharge home later this morning with in-home physical therapy beginning tomorrow with [facility]. Total hip precautions reviewed Weightbearing as tolerated with walker assistance Abduction pillow use x 6 weeks Ice with easy wrap DVT prophylaxis with aspirin and Plavix, as well as DAVID stockings Pain controlled p.o. medication P.o. Diflucan for fungal rash on hip Keep Silverlon dressing in place until follow-up Plan is to discharge home later this morning with in-home physical therapy for the first 2 weeks Follow-up advanced orthopedics as previously scheduled With questions contact our clinic at [phone] Total Time Total Time Spent Total Time Spent (In Minutes): 20 mins Discharge Plan Discharge Items Patient Disposition: Home - Home Health Services Reason For Visit: POST SURGICAL CARE Discharge Diagnosis: Right Hip Osteoarthritis Activity: As commented below Lifting: None Bathing: Keep incision dry Bathing Comment: May shower tomorrow Sexual Activity: Wait until after follow-up appointment Exercise/Sports: Wait until after follow-up appointment Weightbearing Comment: as tolerated with walker assistance Non-emergency contact: Surgeon Call non-emergency contact if: you have any medication questions, your temperature is above 101.5, your wound has increased drainage and your wound pain has increased Follow-up/Referrals: Geraldo Reyes, [Primary Care Provider] - Diet: Heart Healthy Addtl Attending Provider Instructions: Post-operative Instructions Dear Patient and Family/Friends, Before you are discharged from the hospital, it is important to know what to expect when you get home after surgery. To that end, we have created this sheet of discharge instructions which covers many commonly asked questions. Make sure you go through this sheet in its entirety with your nurse before you are discharged. Please note that we will go over the specifics of your surgery and recovery when you return for your first post-operative visit. Sincerely, Dr. Steele Medications 1. Oxycodone 5 mg: take 1-2 tabs every 4-6 hours as needed for post operative pain. This will be sent to your pharmacy. 2. Diclofenac Sodium 75 mg: take 1 tab twice daily for post operative pain and inflammation relief. This will be sent to your pharmacy with 1 refill. 3. Resume your daily Plavix and Aspirin for blood clot prevention 4. Extra strength Tylenol 500 mg: take 2 tabs every 6-8 hours as needed for additional pain relief. Please purchase. 5. Diflucan 200 mg: take 1 tab daily for next 7 days for Right hip fungal skin issue. This was also sent to your pharmacy. Pain Expect to be in a fair amount of pain after surgery. Remember, our goal is not to eliminate your pain, but to make it tolerable. It is a good idea to stay ahead of your pain by taking the medications you were prescribed once you get home. Typically, the pain starts improving 3-7 days after surgery. You should start weaning off the narcotic pain medication (oxycodone, hydrocodone, hydromorphone, morphine) as soon as your pain improves. Please call our office if your pain is not adequately controlled. Ice Ice your operative site at least 5 times a day for 15-30 minutes at a time. Make sure you have a thin cloth between the ice or cooling unit and your skin to prevent serna bite. This is especially important if you received a nerve block. Continue icing your operative site for the first 5-7 days after surgery, then as needed. Diet/Nausea/Vomiting Start by drinking clear liquids and eating crackers. If you can tolerate this, then you may resume your normal diet. If you feel nauseated or vomit, take Zofran/ondansetron (if prescribed). Please call our office if you have intractable nausea or vomiting, or, if after hours, you may go to the Emergency Room for help. Constipation Constipation is a common side effect of narcotic pain medication. If you have not had a bowel movement within 2 days after surgery, we recommend purchasing an over the counter laxative such as Milk of Magnesia, Dulcolax, or Miralax from a local pharmacy, and taking it as instructed. Call our clinic if any questions. Slings and Braces If you were placed in a sling or brace, it must be worn at all times, including sleep. You may remove your sling or brace for physical therapy, home exercises, and showering. The length of time you will be in your brace and range of motion restrictions depends on what surgery you had; these details will be reviewed at your first post-operative appointment. Nerve block The anesthesia team sometimes places a nerve block to help with post-operative pain control. This results in significant numbness and inability to move the extremity. The nerve block usually wears off in 8-12 hours, but sometimes can last up to 24 hours. Please call our office if you are still unable to move your extremity after 24 hours, unless you received a pain pump to take home. Nerve blocks typically wear off quickly, so start taking pain medication as soon as you start feeling soreness near your surgical site. Weight bearing and Range of Motion. Do not bear any weight through your operative extremity immediately after surgery. If you had upper extremity surgery, do not lift anything with that arm. If you are in a knee brace, keep it locked in place until your follow-up. We will discuss your weight bearing, range of motion, and lifting restrictions in detail at your first post-operative appointment. Continuous Passive Motion (CPM) Machine If you were prescribed a CPM machine, it will start after your first post- operative appointment, at which time we will give you instructions on the range of motion settings and duration of treatment Physical therapy You will be given a prescription for physical therapy or occupational therapy at your first post-operative appointment. Typically, patients start therapy within 1 week of surgery Wound care and showering We will inspect your wound at your first post-operative visit, and may do a dressing change at that time. Most patients will be in a water-proof dressing that is removed 14 days after surgery. It is normal to see some dried blood on the dressing. Do not remove your dressing, paper strips or sutures yourself unless you are given permission. Showering is allowed the day after surgery. Do not scrub or remove any dressings. The wound should not be submerged underwater (i.e. in a bathtub or pool) until 4 weeks after surgery DAVID stockings If you were given white stockings, these are to be worn at all times except to shower (on both legs) for the first 2 weeks after surgery. Driving You may not drive while taking narcotic pain medication or while in a cast, splint, sling or brace. You, the patient, need to make the final determination about when you are safe to drive, however, the earliest you may consider driving after surgery is below: Hand/Wrist/Elbow Surgery: 3 days Shoulder Surgery: 2 weeks Hip,/Knee/Ankle Surgery: 4 weeks Fracture repair: 6 weeks Return to Work Your return to work depends on what surgery was done and what type of work you do. Please bring any paperwork your employer needs completed to your first post-operative visit. Also, bring a description of your job duties, as this helps us to understand what risks you may face at work. Travel Avoid long distance travel (greater than 1 hour) in airplanes and cars for the first 6 weeks after surgery. If you must travel, you need to have a Doppler ultrasound done before you travel to rule out a blood clot in your legs. Follow-up Please follow up at our office next 02/14/23 @ 2:30 PM, with Diane Zarate PA-C, for a dressing change. When to call the office It is normal to have swelling and bruising in the limb that was operated on. This will improve with time. It is also normal to have fevers for the first 2 days after surgery. Reasons you should call your doctor include: Uncontrolled pain; Nausea, vomiting, or constipation that does not improve with medication; Fevers over 101.5, chills, sweats; Drainage or bleeding from the wound; Foul odor; Spreading areas of redness; Any other concerns Pending Studies at Discharge: No Stand-Alone Forms: [facility] Medications and DC Order Prescriptions: New oxycodone 5 mg Tablet 5 - 10 mg PO Q4H MDD ongoing Tx PRN (Reason: pain) Qty: 28 0RF diclofenac sodium 75 mg tablet,delayed release (DR/EC) 75 mg PO BID 30 Days Qty: 60 1RF fluconazole [Diflucan] 200 mg tablet 200 mg PO DAILY 7 Days Qty: 7 0RF Continued clopidogrel [Plavix] 75 mg tablet 75 mg PO Q2D Qty: 45 3RF nitroglycerin 0.4 mg tablet, sublingual 0.4 mg sublingual UD PRN (Reason: Chest Pain) Qty: 25 3RF Rx Instructions: DISSOLVE 1 TABLET UNDER THE TONGUE NEEDED FOR CHEST PAIN.( VERIFIED PAT CALL 01/18/22) losartan 100 mg tablet 100 mg PO HS Qty: 90 3RF multivitamin [Multiple Vitamins] tablet 1 tab PO QAM aspirin [Carolin Low Dose Aspirin] 81 mg Tablet,Delayed Release (Dr/Ec) 81 mg PO QAM vitamin B complex Tablet 1 tab PO QAM alpha lipoic acid 600 mg Capsule 600 mg PO HS cyanocobalamin (vitamin B-12) [Vitamin B-12] 5,000 mcg Tablet, Sublingual 5,000 mcg PO QAM atorvastatin 40 mg tablet 40 mg PO HS Admission Data Admit Date/Time: 02/07/23 11:11 Attending Provider: Con Steele Admit Provider: Con Steele Primary Care Provider: Geraldo Reyes Other Providers: [facility]
--- NOTE | 2023-02-08 09:25 | Orthopedic Progress Note ---
Date of Service February 08, 2023 Assessment & Plan (1) S/P total hip arthroplasty: Plan: Total hip precautions reviewed Weightbearing as tolerated with walker assistance Abduction pillow use x 6 weeks Ice with easy wrap DVT prophylaxis with aspirin and Plavix, as well as DAVID stockings Pain controlled p.o. medication P.o. Diflucan for fungal rash on hip Keep Silverlon dressing in place until follow-up Plan is to discharge home later this morning with in-home physical therapy for the first 2 weeks Follow-up advanced orthopedics as previously scheduled With questions contact our clinic at [phone] Admission and Anticipated Discharge Date Admission Date: February 07, 2023 Subjective This 72-year-old male is day 1 status post right total hip arthroplasty. Patient states that he is doing very well. He denies any pain at present. He states that his hip feels great. Patient states that he has been able to ambulate to the restroom several times while using his walker. Currently he denies chest pain, shortness of breath, fever, chills, sweats, numbness or tingling in his right lower extremity. He also denies nausea, vomiting or difficulty voiding. Review of Systems Review of Systems: All systems reviewed & are unremarkable except as noted in Subjective Physical Exam Physical Exam: Right hip: Outer dressing was removed. Silverlon is clean dry intact and left in place. Patient is able to perform active straight leg raise test. He is able to actively dorsi and plantarflex without issue. He has no pain with logroll testing. He does experience a slight twinge of pain with light passive internal rotation. He has no pain with passive hip flexion near 90 degrees or with external rotation. He is neurovascularly intact in the right lower ex tremity. His quad strength is 4 out of 5. Results & Data Vital Signs (Past 12 Hours) Vital Signs Temp Pulse Resp BP Pulse Ox O2 Del Method 02/08/23 07:53 37.2 C 72 16 129/55 L 97 Room Air 02/08/23 02:46 36.8 C 62 18 107/54 L 97 Room Air 02/07/23 22:00 36.9 C 59 L 18 123/53 L 96 Room Air Diagnostic Findings Laboratory Results WBC 17.67 K/ul (4.8-10.8) H 02/08/23 06:23 RBC 3.94 M/uL (4.70-6.10) L 02/08/23 06: Hgb 12.0 g/dl (14.0-18.0) L 02/08/23 06: Hct 34.8 % (42.0-52.0) L 02/08/23 06:23 MCV 88.3 fL (80.0-100.0) 02/08/23 06: MCH 30.5 pg (25.0-34.0) 02/08/23 06: MCHC 34.5 g/dL (32.0-36.0) 02/08/23: RDW Std Deviation 41.8 fL (36.4-46.3) 02/08/23: RDW Coeff of Marcelo 12.9 % (11.5-14.5) 02/08/23 06: Plt Count 156 K/uL (130-400) 02/08/23 06: MPV 11.2 fL (9.4-12.4) 02/08/23 06: Immature Gran % (Auto) 0.8 % 02/08/23 06: Neut % (Auto) 87.2 % 02/08/23 06:23 Lymph % (Auto) 5.3 % 02/08/23 06: [place] % (Auto) 6.6 % 02/08/23 06:23 Eos % (Auto) 0.0 % 02/08/23 06: Baso % (Auto) 0.1 % 02/08/23 06: Neut # (Auto) 15.42 K/uL (1.40-6.50) H 02/08/23 06:23 Lymph # (Auto) 0.93 K/uL (1.20-3.40) L 02/08/23 06:23 [place] # (Auto) 1.17 K/uL (0.11-0.59) H 02/08/23 06: Eos # (Auto) 0.00 K/uL (0.00-0.50) 02/08/23 06: Baso # (Auto) 0.01 K/uL (0.00-0.20) 02/08/23 06:23 Immature Gran # (Auto) 0.14 K/uL (0.01-0.20) 02/08/23 06:23 Sodium 136 mmol/L (136-145) 02/08/23 06:23 Potassium 4.4 mmol/L (3.5-5.1) 02/08/23 06:23 Chloride 105 mmol/L (98-107) 02/08/23 06:23 Carbon Dioxide 27 mmol/L (21-32) 02/08/23 06:23 Anion Gap 4 (3-11) 02/08/23 06:23 BUN 22 mg/dl (6-23) 02/08/23 06:23 Creatinine 1.04 mg/dl (0.6-1.4) 02/08/23 06:23 Est Cr Clr Drug Dosing 72.5 ml/min 02/08/23 06:23 Est GFR ( Amer) 82.2 ml/min 02/08/23 06:23 Est GFR (Non-Af Amer) 70.9 ml/min 02/08/23 06:23 BUN/Creatinine Ratio 21.2 (10-20) H 02/08/23 06:23 Glucose 131 mg/dl (70-99(Fasting)) H 02/08/23 06:23 Calcium 8.7 mg/dl (8.6-10.3) 02/08/23 06:23 Impressions Pelvis X-Ray 02/07/23 11:11 SINGLE VIEW PELVIS CLINICAL HISTORY: Postoperative examination. FINDINGS: 2 AP, portable, supine views of the hips and lower pelvis are compared to study dated 01/22/2023. The skeletal structures are osteopenic. A bipolar right hip arthroplasty is in near anatomic alignment. At least 2 cortical lag screws transfix the acetabular cup. No acute fracture is seen. Subcutaneous gas and soft tissue edema overlying the right hip are expected postsurgical changes. Moderate arthritic change and joint space narrowing seen in the left hip. There is near complete bony fusion of the pubic symphysis. Surgical clips project over the scrotum. IMPRESSION: Expected postsurgical findings status post right hip arthroplasty. No acute fracture is seen. Electronically signed by: Bebeto Cardona M.D. 02/07/2023 1:14 PM
[2023-02-08] MEDS: FLUCONAZOLE 200 MG/100 ML BAG IV SCH (09:46)
[2023-02-08] MEDS ORDERED: LACTATED RINGER'S 500 ML IV ONE (10:15)
--- NOTE | 2023-02-08 10:28 | Hospitalist Consultation ---
Date of Consultation February 08, 2023 Assessment & Plan (1) Episode of syncope: - Likely orthostatic hypotension in the setting of recent surgery and administration of losartan this morning - Given significant cardiac history will plan to trend troponin q6H - S/p 500mL LR, plan to continue LR @ 80mL/Hr for an additional liter - hold Losartan; restart when blood pressures can tolerate (2) S/P total hip arthroplasty: - s/p right total hip arthroplasty - management per ortho (3) CAD (coronary artery disease): - history of stents to LAD in 2010 - EKG without ischemic changes - trend tropines as per above (4) Epigastric pain: - pt has been received steroids in addition to NSAIDs post-op - hold Celebrex - will add famotidine 20mg IV BID (5) HTN (hypertension): - hold losartan pending stability in blood pressures (6) Idiopathic peripheral neuropathy: - noted. No change from baseline per pt. Supervising Physician Co-Signing Physician Notes I personally saw and examined the patient. I verified all ramírez points and agree with resident physician Dr Arelis Cedeno, with the following exceptions and/or additions: 72 year old male POD#1 right total hip arthroplasty. EBL 100ml. Doing well until this morning following PT had some epigastric pain while sitting and subsequently had a syncopal event. Code purple called and BP low. When seen he is back in bed and feeling like his morning self. Epigastric pain lasted for 15 mins. No prior history of gastric ulcers or heartburn. History of coronary stents but no prior CO. O/E HS RRR, no murmurs, Chest CTAB, Abdo SNT A/P Vasovagal syncope - suspect secondary to losartan in setting of epigastric pain, hold losartan, treat epigastric pain as below. Epigastric pain in setting of dexamethasone, Toradol, Celebrex, aspirin and clopidogrel use - repeat Hgb in AM to make sure no GI bleed but no history of heartburn / ulcers. Famotidine 20mg IV daily. Monitor overnight for recurrence. Trend troponins but low suspicion based on history - increased risk due to history of CAD with prior stents. History of Present Illness Reason for Consultation: Syncopal Episdose Attending Physician: Con Steele MD History of Present Illness 72 year old male with a past medical history of CAD s/p LAD stents in 2010, HTN, HLD, spinal stenosis. S/P Right Total Hip Arthroplasty 02/07. Was sitting in chair this morning, receiving IV fluconazole. Witnessed syncopal episode while he was sitting in chair. Cold purple was called and he was moved over to bed. Initially blood pressure was found to be 89/48. After laying in bed came up to 120s/50s. Did have prodromal symptoms; felt lightheaded, had headache, mild epigastric pain, and states that "everything went white" prior to episode. History of cardiac cath/stents pre patient in 2010. States that the pain he had today was not in his chest, did not radiate and was different from cardiac pain that he has had in the past. Pain has resolved. Of note he has a history of HTN, and did received Losartan this morning. Denies ever having similar episodes in the past. Labs from this morning reviewed. CBC with leukocytosis to 17 and Hbg= 12; post- op day 1. BMP wnl. EKG with sinus bradycardia in the 50s, no ischemic changes. S/p 500mL LR. Allergies Allergy/AdvReac Type Severity Reaction Status Date / Time No Known Allergies Allergy Verified 02/07/23 08:07 Home Medications Medication Instructions Recorded Confirmed Type multivitamin (Multiple Vitamins 1 tab PO QAM 02/13/19 02/07/23 History tablet) alpha lipoic acid 600 mg capsule 600 mg PO HS 09/17/20 02/07/23 History aspirin 81 mg tablet,delayed 81 mg PO QAM 09/17/20 02/07/23 History release (Carolin Low Dose Aspirin) cyanocobalamin (vitamin B-12) 5,000 mcg PO QAM 09/17/20 02/07/23 History 5,000 mcg sublingual tablet (Vitamin B-12) vitamin B complex 1 tab PO QAM 09/17/20 02/07/23 History clopidogrel 75 mg tablet (Plavix) 75 mg PO Q2D #45 tabs 03/23/22 02/07/23 Rx losartan 100 mg tablet 100 mg PO HS #90 tabs 06/21/22 02/07/23 Rx atorvastatin 40 mg tablet 40 mg PO HS 01/17/23 02/07/23 History nitroglycerin 0.4 mg sublingual 0.4 mg sublingual UD PRN Chest 01/17/23 02/07/23 Rx tablet Pain #25 tabs diclofenac sodium 75 mg 75 mg PO BID Post operative pain 02/08/23 Rx tablet,delayed release and inflammation relief 30 days #60 tabs fluconazole 200 mg tablet 200 mg PO DAILY Fungal infection 02/08/23 Rx (Diflucan) Right hip 7 days #7 tabs oxycodone 5 mg tablet 5 - 10 mg (1 - 2 x 5 mg) PO Q4H 02/08/23 Rx PRN pain #28 tabs Patient History Medical History Idiopathic peripheral neuropathy Bilateral feet- stable Arthritis History of prediabetes Diet controlled CAD (coronary artery disease) Stents x3 (2010) to LAD Follows by Dr. Massey Dyslipidemia HTN (hypertension) Surgical History H/O foot surgery rt neuroma removed Hx of vasectomy [place] teeth removed History of heart artery stent 2010 > 3 stents History of colonoscopy S/P laparoscopic hernia repair inguinal Family History Father Hypertension Other No family history of adverse response to anesthesia Social History Smoking Status: Never smoker Second Hand Exposure: No; Do You Dip or Chew Tobacco: No; Hx Alcohol Use: Yes Alcohol type: beer and wine Hx Substance Use: No Preferred Language: Kazakh Communication Ability: Effective Scuba Diver Required: No Beliefs That Will Affect Care: [place] Current Living Situation: Spouse Feels Safe at Home: Yes Safety Concerns: Feels Safe At This Time Assistive Devices: Walker Review of Systems Review of Systems: As per HPI Physical Exam Physical Exam: Constitutional: well-appearing, no acute distress HEENT: NCAT, no conjunctival injection CV: regular rhythm, no murmur appreciated, extremities well-perfused, no LE edema Resp: CTABL, no wheezes/rales/rhonchi appreciated, no increased work of breathing GI: soft, nondistended, nontender, BS normoactive MSK: no gross deformities appreciated Skin: warm, dry, no rash appreciated Neuro: alert, oriented, no focal neurologic deficit appreciated Results & Data Results & Data Vital Signs (Past 12 Hours) Vital Signs Temp Pulse Resp BP Pulse Ox O2 Del Method 02/08/23 07:53 37.2 C 72 16 129/55 L 97 Room Air 02/08/23 02:46 36.8 C 62 18 107/54 L 97 Room Air Resident Activity Tracking Resident Involvement: Resident Care Provided Care Provided: Adult Hospital Medicine
[2023-02-08] MEDS ORDERED: LACTATED RINGER'S 1,000 ML IV SCH (10:45)
[2023-02-08] MEDS: FAMOTIDINE 20 MG in SYRINGE 3 ML IV SCH (10:49)
[2023-02-08] MEDS ORDERED: CLOPIDOGREL BISULFATE 75 MG TAB PO SCH (11:15)
--- NOTE | 2023-02-08 11:47 | XRay Report ---
XR chest 1V portable HISTORY: 72 years-old Male syncope acute syncope COMPARISON: 01/22/2023 TECHNIQUE: AP view of the chest FINDINGS: Coronary arterial stent. Cardiomediastinal and hilar silhouettes are within normal limits. No pneumot horax, pleural effusion or airspace consolidation. Bones appear grossly intact. Spondylotic spurring of the spine. IMPRESSION: No acute process. ACT 112: Negative or not required by law. The above report was generated using voice recognition software. It may contain grammatical, syntax o r spelling errors. Electronically signed by: Miguel Avila M.D. 02/08/2023 11:46 AM
--- NOTE | 2023-02-08 17:37 | Electrocardiogram Report ---
Test Reason : Blood Pressure : / mmHG Vent. Rate : 059 BPM Atrial Rate : 059 BPM P-R Int : 148 ms QRS Dur : 088 ms QT Int : 440 ms P-R-T Axes : 059 052 052 degrees QTc Int : 435 ms Sinus bradycardia Early repolarization Otherwise normal ECG When compared with ECG of 22-JAN-2023 16:04, No significant change was found Confirmed by Reuben Castillo ([id number]) on 02/08/2023 5:37:28 PM Referred By: Con Steele Confirmed By:Byron Castillo
[2023-02-08] MEDS: SENNA 8.6 MG TAB PO SCH (21:07)
[2023-02-08] MEDS: ATORVASTATIN 40 MG TAB PO SCH (21:08)
[2023-02-08] MEDS: CeleBREX 200 MG CAP PO SCH (21:09)
[2023-02-09] MEDS: Scopolamine CHECK PATCH PLACEMENT SCH ×2 (00:38→08:26)
[2023-02-09] MEDS: ACETAMINOPHEN 500 MG TAB PO SCH ×2 (00:39→08:29)
--- NOTE | 2023-02-09 06:45 | Hospitalist Progress Note ---
Date of Service February 09, 2023 Assessment & Plan (1) Episode of syncope: Plan: -Likely orthostatic hypotension in the setting of recent surgery and administration of losartan the night prior -Given significant cardiac history troponin trended, no significant elevation -S/p 1.5L IV fluids -held Losartan initially, will resume Losartan today at reduced dosage of 50mg for 1 week. Encouraged patient to follow up with PCP within the next week and discuss appropriate time frame for resuming full Losartan dose. -Symptoms also seemed to follow IV fluconazole administration, per ortho patient will continue with PO fluconazole for 1 week due to concern of ringworm near surgical site. (2) S/P total hip arthroplasty: Plan: -S/p right total hip arthroplasty -Management per ortho (3) CAD (coronary artery disease): Plan: -History of stents to LAD in 2010 -EKG without ischemic changes -Trended troponin as per above (4) Epigastric pain: Plan: -Pt has been received steroids in addition to NSAIDs post-op -Held Celebrex initally -Added famotidine 20mg BID, symptoms now resolved (5) HTN (hypertension): Plan: -Normotensive to hypertensive today -Will restart Losartan tonight at reduced dose -Will be discharged at Losartan 50mg and follow up with PCP as outpatient to consider increasing to full dosage (6) Idiopathic peripheral neuropathy: Plan: -Noted. No change from baseline per pt. Plan Patient stable from hospitalist perspective for discharge. Hospitalist team will sign off. Admission and Anticipated Discharge Date Admission Date: February 07, 2023 Supervising Physician Co-Signing Physician Notes Attending attestation Pt seen and examined in concert with Dr. Lopez. In agreement with the documented findings as noted in the resident documentation with any exceptions or additions as noted here. Sitting at bedside engaged with PT at time of evaluation reporting no recurrence of symptoms nor repeat epigastric discomfort. Symptoms with addition of higher dose losartan the previous evening and dose of fluconazole IV shortly preceding. On examination, S1/S2 nl RRR 2/6 BRENT which is noted chronically. CTAB. Abd NT/ND BS+ve VS: 166/71, 62, 18, 36.4, 98 RA Data: WBC 17.55, Hgb 11.5, Cr 1.02 Syncope, vasovagal - no recurrence, likely 2/2 losartan vs. fluconazole - can resume losartan this evening at reduced dose Tinea - would recommend d/c IV fluconazole Else see resident documentation as noted. Subjective Patient seen and examined at bedside. He states he is feeling well today, denies chest pain or shortness of breath. He denies any additional abdominal pain, has been eating and drinking normally. Denies any current lightheadedness, has been able to ambulate without any dizziness. Review of Systems Review of Systems: As per HPI Physical Exam Constitutional: well developed and well nourished; no acute distress Eyes: + anicteric sclerae; no conjunctival abn ormality ENMT: Ears: no external ear abnormality Nose: no external nose abnormality Moist mucous membranes Respiratory: normal respiratory effort, lungs clear to auscultation Cardiovascular: Rate/Rhythm: regular rate and regular rhythm +systolic murmur Gastrointestinal (Abdomen): Abdomen soft, nontender and nondistended. Skin: Bandage covering surgical site at right hip, no visible erythema or drainage. Psychiatric: A+Ox3, euthymic affect Results & Data Results & Data Vital Signs (Past 12 Hours) Vital Signs Temp Pulse Resp BP Pulse Ox O2 Del Method 02/08/23 20:46 36.5 C 75 18 151/67 H 96 Room Air Resident Activity Tracking Resident Involvement: Resident Care Provided Care Provided: Adult Hospital Medicine
[2023-02-09 08:02] LABS: Troponin I High Sensitivity 6.7 pg/ml (0-20)
[2023-02-09 08:20] LABS: BUN Creatinine Ratio 27.5 (10-20); Calcium 8.7 mg/dl (8.6-10.3); Creatinine Clr Calc Pharmacy 73.9 ml/min; Est GFR (African American) 84.1 ml/min; Est GFR (Non-African American) 72.6 ml/min; Potassium 4.3 mmol/L (3.5-5.1)
[2023-02-09] MEDS: MULTIVITAMIN TAB PO SCH (08:25)
[2023-02-09] MEDS: CeleBREX 200 MG CAP PO SCH (08:25)
[2023-02-09] MEDS: VITAMIN B COMPLEX TAB PO SCH (08:25)
[2023-02-09] MEDS: ASPIRIN 81 MG ECTAB PO SCH (08:25)
[2023-02-09] MEDS: DOCUSATE SODIUM 100 MG CAP PO SCH (08:25)
[2023-02-09] MEDS: CYANOCOBALAMIN (B-12) 2,500 MCG TABLET PO SCH (08:25)
--- NOTE | 2023-02-09 08:27 | Billing Data ---
Date of Service February 08, 2023 Coding Level of Care Code 38281 IN/OBS CONSULT LVL 4,60M
[2023-02-09] MEDS: FAMOTIDINE 20 MG in SYRINGE 3 ML IV SCH (08:29)
[2023-02-09 08:44] LABS: Basophils # (auto) 0.02 K/uL (0.00-0.20); Basophils % (auto) 0.1 %; Hematocrit (blood only) 33.4 % (42.0-52.0); Hemoglobin 11.5 g/dl (14.0-18.0); Immature Granulocytes # (auto) 0.09 K/uL (0.01-0.20); Immature Granulocytes % (auto) 0.5 %; Lymphocytes # (auto) 1.03 K/uL (1.20-3.40); Lymphocytes % (auto) 5.9 %; Mean Corpuscular Hemoglobin 30.6 pg (25.0-34.0); Mean Corpuscular Hgb Conc 34.4 g/dL (32.0-36.0); Mean Corpuscular Volume 88.8 fL (80.0-100.0); Mean Platelet Volume 11.4 fL (9.4-12.4); Monocytes % (auto) 7.4 %; Neutrophils # (auto) 15.11 K/uL (1.40-6.50); Neutrophils % (auto) 86.1 %; Platelet Count 149 K/uL (130-400); RDW Coefficient of Variation 13.2 % (11.5-14.5); RDW Standard Deviation 42.9 fL (36.4-46.3); Red Blood Count 3.76 M/uL (4.70-6.10); White Blood Count 17.55 K/ul (4.8-10.8)
[2023-02-09] MEDS: FLUCONAZOLE 200 MG/100 ML BAG IV SCH (09:30)
[2023-02-09] MEDS ORDERED: LOSARTAN POTASSIUM 50 MG TAB PO SCH (21:00)
== END 2023-02-09 17:47 | disposition home health service (06) ==
LOC: 3E 07:43 → ASU 07:43

== ENCOUNTER 2024-01-16 06:41 | Inpatient (IN) ==
--- NOTE | 2023-12-25 15:48 | History & Physical Report ---
Date of Service December 25, 2023 Assessment & Plan (1) Osteoarthritis of left hip: Plan: PRE-OP Diagnosis: Left hip osteoarthritis Planned Procedure: Left total hip arthroplasty Plan: Patient is scheduled to undergo this procedure at the [facility] with a 23-hour observation admission with Dr. Steele on , January 16, 2024. Risks and complications of the procedure such as: Infection, bleeding, pain, scarring, nerve blood vessel damage, weakness, wound problems, stiffness, incomplete relief of symptoms, hardware failure, hardware loosening, wear, fracture, tendon or ligament injury, dislocation, leg length inequality, blood clots, Embolism, heart attack, stroke and were explained to the patient at his visit today. Informed consent to perform the procedure was obtained. Patient had his appointment with PAT before his right total hip arthroplasty back in January. He does not need another PAT appointment however we will need to obtain an updated CBC with differential, complete metabolic panel, PT/INR, urinalysis, urine culture and sensitivity, EKG, and a nasal culture for MRSA. I provided patient with orders to obtain the studies at his preoperative visit today. Patient will also need preoperative medical clearance from their primary care provider. He states that he has an appointment scheduled for December 29. 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 Massey. Patient states that he plans on doing in-home physical therapy for the first 1 to 2 weeks postoperatively with [facility]. Patient states that he will most likely elect to do outpatient physical therapy at our PT clinic. Patient states that he already has a raised toilet seat, shower chair, hip kit and a walker that he will bring with him on the morning of surgery. During today's visit we reviewed the total hip packet as well as precautions. We discussed discharge planning from the hospital. I provided paperwork to obtain a handicap placard for their vehicle. Patient states that he partook in the [employer] lectures before his past that surgery and does not feel that he needs to do it again. I advised the patient that upon discharge from hospital we will prescribe a narcotic pain medication and anti-inflammatory. Patient will resume his Plavix postoperatively for blood clot prevention. Patient will be scheduled for 2-week postoperative follow-up visit with myself on January 28. This chart was completed utilizing [employer] voice recognition software. Grammatical errors, random word insertions, pronoun errors, and in complete sentences are an occasional consequence of the system. Any questions or concerns about the content, text, or information contained within the body of this dictation should be addressed directly to the physician for clarification. History of Present Illness Chief Complaint: Chief Complaint: Left hip pain Primary Care Provider: Geraldo Reyes DO History of Present Illness (including history relevant to procedure): 73-year-old male presents to clinic today for his preoperative history and physical. His pain radiates from his hip down his entire leg and worsens when ambulating. The pain is similar to his right side prior to right WALTER.He also has a stiff back and has difficulty bending over to put on socks. He does not have any numbness or tingling other than his baselineneuropathy, which is stable. He is still on Plavix. Review Of Systems: A 12 point review of systems is performed and is unremarkable except for those things stated in the HPI past medical history. Past Medical History: Problems: S/P total hip arthroplasty Right hip pain Lumbar foraminal stenosis Right lumbar radiculopathy Traumatic ecchymosis of foot Prophylactic Administration of Vaccine Against Other Diseases Peripheral polyneuropathy Tubular adenoma of colon Healthcare maintenance Prediabetes Hereditary and idiopathic neuropathy Cardiovascular disease Weight monitoring UNSPECIFIED INFLAMMATORY AND TOXIC NEUROPATHIES CAD PURE HYPERCHOLESTEROLEMIA Procedure History Procedure Procedure Date Comments 1 Stent placed 03/2010 Neuromo removal to right foot - 2008 CT angio of head w con - mild atherosclerotic involvment without hemodynamically significant stenosis CT of neck with con - 1. 50 stenosis at the origin and V2 segment of the right vertebral artery Colonoscopy 07/26/2022 - Pathology results demonstrated 2 tubular adenoma.Repeat colonoscopy in 5 ye ars - COLO to cecum, 3 mm TC polyp CF, 4 mm sigmoid polyp CS, diverticulosis Lumbar epidural injection 01/22/2022 MRI of lumbar spine 10/20/2021 - Mild multilevel degenerative disc disease and moderate facet arthrosis within the lumbar spine. Platent central canal. Moderate multilevel neural foraminal stenosis1.9 cm focus of increased T2 signal along the right anterior aspect of the inferior endoplate of L2. This is likely degerative and likely reflects discogenic change. Marrow edema from nondisplaced fracture could appear similar althouh is considered less likely. CT of head 09/17/2020 - No acute intracranial hemorrhage no midline shift or space occupying lesions [facility] No acute bony abnormality is identified2. Degenerative change and heel spurs Colonoscopy 06/21/2017 - The entire examined colon is normal. The examined portion of the ileum was normal. The distal rectum and anal verge are normal on retroflexion view. No specimens collected. Laparoscopic repair of inguinal hernia Right total hip arthroplasty 05/31/2014 - Right Allergies and Sensitivities: NKA Current Home Meds: (Last Updated 12/24 11:05) amoxicillin (amoxicillin 500 mg oral capsule) 2,000 mg PO As indicated one hour before dental and other procedures as directed aspirin (Aspirin Low Dose 81 mg oral enteric coated tablet) 1 tab PO Daily atorvastatin (atorvastatin 40 mg oral tablet) 40 mg PO Daily clopidogrel (Plavix 75 mg oral tablet) 1 tab every other day cyanocobalamin (Vitamin B12 500 mcg oral tablet) 500 mcg PO Daily losartan (losartan 100 mg oral tablet) 100 mg PO Daily multivitamin (Vitamin B Complex) Initial Wt: 12/24 80.8 kg 178 lb Allergies Allergy/AdvReac Type Severity Reaction Status Date / Time No Known Allergies Allergy Verified 09/16/23 07:59 Home Medications Medication Instructions Recorded Confirmed Type multivitamin (Multiple Vitamins 1 tab PO QAM 02/13/19 10/09/23 History tablet) aspirin 81 mg tablet,delayed 81 mg PO QAM 09/17/20 10/09/23 History release (Carolin Low Dose Aspirin) cyanocobalamin (vitamin B-12) 5,000 mcg PO QAM 09/17/20 10/09/23 History 5,000 mcg sublingual tablet (Vitamin B-12) nitroglycerin 0.4 mg sublingual 0.4 mg sublingual UD PRN Chest 01/17/23 10/09/23 Rx tablet Pain #25 tabs clopidogrel 75 mg tablet (Plavix) 75 mg PO Q2D #45 tabs 03/14/23 10/09/23 Rx atorvastatin 40 mg tablet 40 mg PO HS #90 tabs 06/05/23 10/09/23 Rx losartan 100 mg tablet 100 mg PO HS #90 tabs 06/21/23 10/09/23 Rx alpha lipoic acid 300 mg capsule 300 mg PO DAILY 10/09/23 10/09/23 History amoxicillin 500 mg capsule 500 mg PO QID 10/09/23 10/09/23 History Past Med/Surg History Problem List (Updated 12/25/23 @ 15:47 by Donte Zarate PA-C) Osteoarthritis of left hip Ambulatory dysfunction Epigastric pain S/P total hip arthroplasty (01/2023) Idiopathic peripheral neuropathy (Acute) Bilateral feet- stable History of prediabetes Diet controlled Leg pain, diffuse Spinal stenosis Episodic lightheadedness HTN (hypertension) CAD (coronary artery disease) Stents x3 (2010) to LAD Follows by Dr. Massey Medical History Episode of syncope (02/2023) Encounter for pre-operative examination Arthritis Dyslipidemia Surgical History H/O foot surgery rt neuroma removed Hx of vasectomy [place] teeth removed History of heart artery stent 2010 > 3 stents History of colonoscopy S/P laparoscopic hernia repair inguinal Family History Father Hypertension Other No family history of adverse response to anesthesia Social History Smoking Status: Never smoker Second Hand Exposure: No; Do You Dip or Chew Tobacco: No; Hx Alcohol Use: Yes Alcohol type: beer and wine Hx Substance Use: No Preferred Language: [place] Communication Ability: Effective Firearms Inspector Required: No Beliefs That Will Affect Care: Sikhism Current Living Situation: Spouse Feels Safe at Home: Yes Assistive Devices: Walker Review of Systems All systems reviewed & are unremarkable except as noted in Subjective Physical Exam Physical Exam: Physical Exam: (relevant to the procedure, including heart and lung evaluation) General: Alert and oriented x 3 with proper grooming and hygiene. Eyes: Pupils are equal and reactive to light with accommodation. Extraocular movements are intact Throat: Posterior oropharynx clear with absence of edema, erythema or exudate. Dentition is appropriate. No sign of infection. Cardiac: Regular rate and rhythm with no murmurs or gallops appreciated Lungs: Clear to auscultation throughout with no wheezing, rales or rhonchi Abdomen: Nonobese, nondistended, nontender with NABS Extremities: Left hip; ROM: Flexion 95/ Abduction 25/ External rotation 50/ Internal rotation 0 PositiveLog roll Positive straight leg raise test Positive Stinchfield test Tenderness to palpation in the groin ANIL test causes pain at 2 fists Neuro: Cranial nerves II through XII are intact no motor or sensory deficit Skin: Normal in appearance with no open skin areas or discharge Results & Data Diagnostic Findings Studies (relevant to the procedure): 3 (AP pelvis, false profile, and cross table lateral) views of the left hip obtained today and personally interpreted by me taken at [facility] show moderately severe arthritis which is worst centrally
--- NOTE | 2024-01-08 13:25 | Anesthesiology Consultation ---
Date of Service January 08, 2024 Assessment & Plan (1) Encounter for pre-operative examination: Chart Review Chart Review: Acceptable Risk for Surgery (pending surgeon ordered PCP clearance and coags DOS) and Patient NOT seen in Pre Admission Testing - Awaiting surgeon ordered PCP clearance (per surgeon H&P) - Check coags (not done preoperatively) - Patient NOT an ideal OPJ candidate (currently 23 hour obs) - Plavix instructions per surgeon/prescribing provider -Infectious Disease screening: Per PAT nursing assessment on 01/08/24. No known infectious disease contacts in past 10 days or current infectious disease symptoms. No recent travel outside the country. Cardio Clearance letter 12/06/23= "Yes" patient is medically cleared for surgery Right WALTER 02/07/23= Done under SAB at L3-4 with 2 attempts History Surgery Operation Date: 01/16/24 08:15 Proposed Procedures p Left Total Hip Arthroplasty - Con Steele MD Height/Weight Height: 6 ft 2 in Weight: 79.379 kg Allergies Allergy/AdvReac Type Severity Reaction Status Date / Time No Known Allergies Allergy Verified 01/08/24 12:47 Medications Home Medications Medication Instructions Recorded Confirmed Last Taken multivitamin (Multiple Vitamins 1 tab PO QAM 02/13/19 01/08/24 05/17/23 tablet) aspirin 81 mg tablet,delayed 81 mg PO QAM 09/17/20 01/08/24 05/17/23 release (Carolin Low Dose Aspirin) cyanocobalamin (vitamin B-12) 5,000 mcg PO QAM 09/17/20 01/08/24 05/17/23 5,000 mcg sublingual tablet (Vitamin B-12) nitroglycerin 0.4 mg sublingual 0.4 mg sublingual UD PRN Chest 01/17/23 01/08/24 Unknown tablet Pain #25 tabs clopidogrel 75 mg tablet (Plavix) 75 mg PO Q2D #45 tabs 03/14/23 01/08/24 05/16/23 atorvastatin 40 mg tablet 40 mg PO HS #90 tabs 06/05/23 01/08/24 Unknown losartan 100 mg tablet 100 mg PO HS #90 tabs 06/21/23 01/08/24 Unknown amoxicillin 500 mg capsule 500 mg PO UD 10/09/23 01/08/24 Unknown vitamin B complex 1 cap PO QAM 01/08/24 01/08/24 Unknown Past Medical History Medical History Arthritis CAD (coronary artery disease) Stents x3 (2010) to LAD Follows by Dr. Massey Dyslipidemia Episode of syncope (02/2023) Occurred post op day #1 from right WALTER- likely orthostatic hypotension in the setting of recent surgery and administration of Losartan this morning per hospital records History of prediabetes diet controlled, patient states no longer prediabetic Hypertension Idiopathic peripheral neuropathy To bilateral feet Spinal stenosis Past Family History Family History Father Hypertension Other No family history of adverse response to anesthesia Past Surgical History Surgical History H/O foot surgery rt neuroma removed History of colonoscopy History of dental surgery (11/2023) left lower dental implant post present History of heart artery stent 2010 > 3 stents History of total right hip arthroplasty Hx of vasectomy S/P laparoscopic hernia repair inguinal [place] teeth removed Social History Smoking Status: Never smoker Do You Dip or Chew Tobacco: No Hx Alcohol Use: Yes Alcohol type: beer and wine alcohol intake frequency: a few times a week Hx Substance Use: No substance use type: does not use Testing Laboratory Results 12/25/23= WBC: 6.58 H/H: 13.0/40.6 PLATELETS: 228 SODIUM: 139 POTASSIUM: 4.8 CHLORIDE: 105 CO2: 29 BUN: 16 CREATININE: 0.93 GLUCOSE: 101 Electrocardiogram Date: 12/25/23 SB at 54bpm Minimal voltage criteria for LVH, may be normal variant Chest X-Ray Date: 05/17/23 Findings: + NAD Stress Test Date: 07/02/23 Type: exercise (ECHO) Negative exercise stress ECHO and EKG for ischemia at 96% MPHR Other Testing Lower arterial ultrasound 07/16/23 = no evidence of significant lower extremity arterial occlusive disease bilaterally Chest CTA 05/17/23= There is no evidence of pulmonary embolus in the main, lobar, or segmental pulmonary arteries. The lungs are clear. Advanced coronary artery atherosclerosis. The appearance of the spine suggests an arthropathy such as ankylosing spondylitis. Correlate clinically. Neck CTA 09/17/20= Approximately 50% stenosis at the origin and V2 segment of the right vertebral artery. Atherosclerotic involvement of bilateral internal and external carotid arteries are seen without hemodynamically significant stenosis. Head CTA 09/17/20= Mild atherosclerotic involvement without hemodynamically significant stenosis. Irregular lumen of the proximal aspect of the right MCA without significant stenosis.
[~2024-01-16 06:41] MED LIST changes: -ACETAMINOPHEN 500 MG TAB PO SCH; -CeleBREX 200 MG CAP PO SCH; -FAMOTIDINE 20 MG TAB PO SCH; -LR 500ML BOLUS, THEN 15ML/HR IV SCH; -LR 60ML/HR IV SCH; -MIDAZOLAM HCL 1 MG/ML 2ML VIAL ONE; -ROPIVACAINE 0.5% HCL/PF 150 MG, BUPIVACAINE 0.75% MPF 20 ML, EPINEPHrine 0.15 MG, Ketor... INFIL SCH; -Scopolamine 1 MG TDSY TD SCH; -TRANEXAMIC ACID 1,000 MG **IV Intra-op IV SCH; -TRANEXAMIC ACID 1,000 MG **IV Pre-op IV SCH; -ceFAZolin 2000MG 2,000 MG/15 ML SYR IV SCH; -dexAMETHasone 4 MG TAB PO SCH; -traMADol HCL 50 MG TABLET PO SCH
[2024-01-16] MEDS ORDERED: ONDANSETRON INJ 2 MG/ML 2 ML VIAL IV PRN ×2 (06:43→10:06)
[2024-01-16] MEDS ORDERED: ATROPINE SULFATE 0.1 MG/ML 10ML SYR IV PRN (06:43)
[2024-01-16] MEDS ORDERED: fentaNYL citrate PF 100 MCG/2 ML VIAL IV PRN (06:43)
[2024-01-16] MEDS ORDERED: ePHEDrine sulfate 50 MG/ML AMP IV PRN (06:43)
--- NOTE | 2024-01-16 07:24 | History & Physical Bridge Note ---
Date of Service January 16, 2024 History & Physical Bridge Note I have examined the patient, reviewed the History & Physical and in the interval since the performance of the History & Physical I have noted the following changes of clinical significance: no changes noted
[2024-01-16] MEDS: LR 500ML BOLUS, THEN 15ML/HR IV SCH (07:41)
[2024-01-16] MEDS: LR 60ML/HR IV SCH (07:41)
[2024-01-16] MEDS: ACETAMINOPHEN 500 MG TAB PO SCH ×2 (07:42→13:54)
[2024-01-16] MEDS: FAMOTIDINE 20 MG TAB PO SCH (07:42)
[2024-01-16] MEDS: traMADol HCL 50 MG TABLET PO SCH (07:42)
[2024-01-16] MEDS: Scopolamine 1 MG TDSY TD SCH (07:43)
[2024-01-16] MEDS: dexAMETHasone**PF** 10 MG/ML VIAL IV SCH (07:43)
[2024-01-16] MEDS: CeleBREX 200 MG CAP PO SCH ×2 (07:43→20:21)
[2024-01-16] MEDS ORDERED: fentaNYL citrate PF 100 MCG/2 ML VIAL ONE (07:57)
[2024-01-16] MEDS ORDERED: MIDAZOLAM HCL 1 MG/ML 2ML VIAL ONE (07:57)
[2024-01-16 08:00] LABS: Partial Thromboplastin Time 27 Seconds (21-31); Prothrombin Time 10.7 Seconds (9.0-12.0)
[2024-01-16] MEDS: TRANEXAMIC ACID 1,000 MG **IV Pre-op IV SCH (08:02)
[2024-01-16] MEDS: ceFAZolin 2000MG 2,000 MG/15 ML SYR IV SCH ×2 (08:20→17:12)
[2024-01-16] MEDS ORDERED: PHENYLEPHRINE 100MCG/ML 5ML SYR ONE (08:29)
[2024-01-16] MEDS ORDERED: ePHEDrine sulfate 50 MG/5 ML SYR ONE (08:29)
[2024-01-16] MEDS: ROPIVACAINE 0.5% HCL/PF 246 MG, Ketorolac (*for OR use only*) 30 MG, EPINEPHrine 30MG/3... INFIL SCH (08:43)
[2024-01-16] MEDS: ORTHO JOINT ANESTHETIC ONE (08:43)
[2024-01-16] MEDS ORDERED: PHENYLEPHRINE HCL 10 MG/ML VIAL ONE (08:54)
[2024-01-16] MEDS: TRANEXAMIC ACID 1,000 MG **IV Intra-op IV SCH (09:28)
--- OUTSIDE RECORDS SUMMARY | 2024-01-16 09:49 | External Medical Summary | Continuity of Care Document ---
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 Role Phone Geraldo Reyes Primary Care Physician [phone] [facility] [id number] Date(s): 12/25/23 - 12/25/23 [facility] [address] [employer] [place] [id number] [facility] [address] [place] [id number] Encounter Diagnosis Preop examination(Discharge Diagnosis) - 12/25/23 Osteoarthritis of left hip(Discharge Diagnosis) - 12/25/23 Encounter for other preprocedural examination(Final) - Unilateral primary osteoarthritis, left hip(Final) - Discharge Disposition: Home or Self Care Attending Physician: JANIS Zarate Dennis Referring Physician: MD Cedric, Con Quiles Allergies, Adverse Reactions, Alerts No Known Allergies Immunizations Given and Recorded Vaccine Date Status Refusal Reason zoster vaccine, inactivated 1 03/11/19 Recorded zoster vaccine, inactivated 03/11/18 Recorded pneumococcal 23-valent vaccine 03/22/17 Given pneumococcal 13-valent vaccine 02/24/16 Given tetanus/diphtheria/pertuss, acel (Tdap) 02/11/15 G iven zoster vaccine live 06/28/12 Recorded tetanus toxoids-diphtheria, Td (Adult) 04/16/07 Re corded 1Result Comment: #2 Medications amoxicillin 500 mg oral capsule Start: 12/25/23 11:05:00 AM EDT, 4 cap, PO, As indicated, Disp# 12 cap, Refills: 3, one hour beforedental and other procedures as directed, Pharmacy: [facility]/pharmacy #[id number] Start Date: 12/25/23 Status: Ordered Aspirin Low Dose 81 mg oral enteric coated tablet Start: 04/14/10 3:25:00 PM EST, 1 tab, PO, Daily, tab Start Date: 04/14/10 Status: Ordered atorvastatin 40 mg oral tablet Start: 07/16/22 9:25:00 AM EDT, 1 tab, PO, Daily Start Date: 07/16/22 Status: Ordered losartan 100 mg oral tablet Start: 07/16/22 9:25:00 AM EDT, 1 tab, PO, Daily Start Date: 07/16/22 Status: Ordered Plavix 75 mg oral tablet Start: 04/14/10 3:25:00 PM EST, See Instructions, 1 tab every other day Start Date: 04/14/10 Status: Ordered Vitamin B Complex Start: 07/20/20 10:35:00 AM EDT Start Date: 07/20/20 Status: Ordered Vitamin B12 500 mcg oral tablet Start: 07/20/20 10:35:00 AM EDT, 1 tab, PO, Daily Start Date: 07/20/20 Status: Ordered Mental Status 12/25/23 Barriers to Learning one year None evide nt Mandatory Health Literacy Documentation Yes Health Literacy Communication Barriers N ever Primary Language Armenian Problem List Condition Confirmation Course Effective Dates Status H ealth Status Informant Cardiovascular disease Confirmed Active Healthcare maintenance Confirmed Active Hereditary and idiopathic neuropathy Confirmed Active Right hip pain Confirmed Active S/P total hip arthroplasty Confirmed Active Traumatic ecchymosis of foot Confirmed Active Right lumbar radiculopathy Confirmed Active Peripheral polyneuropathy Confirmed Active Prediabetes Confirmed Active Lumbar foraminal stenosis Confirmed Active Tubular adenoma of colon Confirmed Active Weight monitoring Confirmed Active Diagnosis Diagnosis Type Effective Dates Health Status Clinical Service Informant Osteoarthritis of left hip Discharge Diagnosis 12/25/23 Preop examination Discharge Diagnosis 12/25/23 Procedures Procedure Date Related Diagnosis Body Site [...] midline shift or space occupying lesions 5[facility] Impression: 1. No acute bony abnormality is [...] V2 segment of the right vertebral artery [id number] Results Laboratory List Name Date Urine Analysis, Microscopic Only (URINE MICROSCOPIC) 12/25/23 Complete Blood Count w Differential (CBC ,DIFFH) 12/25/23 Comprehensive Metabolic Panel (COMP META B PANEL) 12/25/23 Prothrombin Time w/ INR (PROTIME WITH IN R) 12/25/23 Request to FAX Report (First Location) ( ACC NO TO BE FAXED) 12/25/23 Most recent to oldest [Reference Range]: 1 eGFR CKD-EPI [>60 mL/min/1.73 m2] 86 mL/ min/1.73 m2 1 (12/25/23 11:23 AM) Estimated CrCl 79.64 mL/min (12/25/23 12:22 PM) Phone No [phone] (12/25/23 11:23 AM) Faxed on: 12/26/23 09:38 (12/25/23 11:23 AM) MPV [9.0-12.2 fL] 10.1 fL (12/25/23 11:23 AM) Immature Gran% 0.6 % (12/25/23 11:23 AM) Neut% 62.5 % (12/25/23 11:23 AM) Lymph% 24.2 % (12/25/23 11:23 AM) [place]% 9.4 % (12/25/23 11:23 AM) Baso% 0.6 % (12/25/23 AM) Eos% 2.7 % (12/25/23 AM) Immat Gran, Abs [0-0.4 K/uL] 0.04 K/uL (12/25/23 AM) Neut, Abs [2.0-7.7 K/uL] 4.11 K/uL (12/25/23 AM) Lymph, Abs [1.0-3.4 K/uL] 1.59 K/uL (12/25/23 AM) [place], Abs [0-1.0 K/uL] 0.62 K/uL (12/25/2323 AM) Baso, Abs [0-0.1 K/uL] 0.04 K/uL (12/25/23 AM) Eos, Abs [0-0.5 K/uL] 0.18 K/uL (12/25/23 AM) Type of Diff: AUTO *Unknown* (12/25/23) RDW [11.5-14.2 %] 14.1 % (12/25/23 AM) Squamous Epithelial Cells (u) NONE *Unknown* (12/25/23 AM) Anion Gap [5-14 mmol/L] 5 mmol/L (12/25/23 AM) Alb [3.5-5.0 g/dL] 4.0 g/dL (12/25/23 AM) Alk Phos [38-126 unit/L] 107 unit/L (12/25/23 AM) ALT [<50 unit/L] 19 unit/L (12/25/23 AM) AST [15-46 unit/L] 38 unit/L (12/25/23 AM) Bact (u) [NONE-NONE] FEW *Abnormal* (12/25/23 AM) BUN [7-20 mg/dL] 16 mg/dL (12/25/23 AM) Ca [8.4-10.2 mg/dL] 9.2 mg/dL (12/25/23 AM) Cl- [96-107 mmol/L] 105 mmol/L (12/25/23 AM) HCO3 [22-30 mmol/L] 29 mmol/L (12/25/23 AM) Cret [0.70-1.30 mg/dL] 0.93 mg/dL (12/25/23 AM) Glu [74-106 mg/dL] 101 mg/dL (12/25/23 AM) Hct [39-48 %] 40.6 % (12/25/23 AM) Hgb [13.0-17.0 g/dL] 13.0 g/dL (12/25/23 AM) INR [0.9-1.1] 1.0 2 (12/25/23 AM) K [3.5-5.1 mmol/L] 4.8 mmol/L (12/25/23 AM) MCH [28-33 pg] 29.8 pg (12/25/23 AM) MCHC [32-36 g/dL] 32.0 g/dL (12/25/23 AM) MCV [81-96 fL] 93.1 fL (12/25/23 AM) Na [137-145 mmol/L] 139 mmol/L (12/25/23 AM) Plts [150-350 K/uL] 228 K/uL (12/25/23 AM) PT [12.0-14.2 seconds] 13.0 seconds (12/25/23 AM) RBC [4.40-5.60 M/uL] 4.36 M/uL *LOW* (12/25/23 AM) T Bili [0.2-1.3 mg/dL] 0.5 mg/dL (12/25/23 AM) Prot [6.3-8.2 g/dL] 7.7 g/dL (12/25/23 AM) RBC (u) [0-4 /HPF] 0-4 /HPF (12/25/23:47 AM) WBC (u) [0-4 /HPF] 0-4 /HPF (12/25/2347 AM) WBC [4.0-10.4 K/uL] 6.58 K/uL (12/25/23 11:23 AM) 1Result Comment: Testing Performed By: Dept of Pathology [facility] [address], [address] [place] [address] 2Result Comment: Suggested therapeutic range for low-intensity Coumadin therapy for venous thromboembolism is INR 2.0-3.0 (ex: atrial fibrillation, history of TIA/stroke). For high risk patients, the suggested therapeutic range is INR 2.5-3.5 (ex: mechanical prosthetic valves). Testing Performed By: Dept of Pathology [facility] [address]es[address], [address] [place] [address] Orders for Microbiology Reports Name Date Urine Culture (CULTURE, URINE) 12/25/23 Microbiology Reports TEST:Urine.Cx STATUS:Auth (Verified) BODY SITE: SOURCE:Urine COLLECTED DATE/TIME:12/25/23 11:47 AM Status FINAL 12/27/2023 Vital Signs Most recent to oldest [Reference Range]: 1 Height 189 cm (12/25/23 10:32 AM) Patient Weight 80.8 kg (12/25/23 10:32 AM) Body Mass Index 22.62 kg/m2 (12/25/23 10:32 AM) Temperature [36.5-37.9 DegC] 36.5 DegC (12/25/23 10:32 AM) Respiratory Rate 20 br/min (12/25/23 10:32 AM) Blood Pressure 140/60mmHg (12/25/23 10:32 AM) Cuff Pulse Pressure 80 mmHg (12/25/23 10:32 AM) Social History Social History Type Response Smoking Status Never smoked cigaret kavita Sex Male Sex Representation Male (finding) EKG study * Contributor_system, [id number]: VERIFY, PERFORM Event Display: EKG Authored Date: Please click on link to see image. Pre-OP H & P * JANIS Zarate Dennis: PERFORM Event Display: Pre-OP H & P Authored Date: [id number] PRE-OPERATIVE HISTORY AND PHYSICAL Name: ROBIN CRISTINA Patient Number: [id number] : 1950 Date of Service: 12/25/2023 PRE-OP Diagnosis: Left hip osteoarthritis Planned Procedure: Left total hip arthroplasty Chief Complaint: Left hip pain History of Present Illness (including history relevant to procedure): 73-year-old male presents to clinic today for his preoperative history and physical. His pain radiates from his hip down his entire leg and worsens when ambulating. The pain is similar to his right side prior to right WALTER.He also has a stiff back and has difficulty bending over to put on socks. He does not have any numbness or tingling other than his baselineneuropathy, which is stable. He is still on Plavix. Review Of Systems: A 12 point review of systems is performed and is unremarkable except for those things stated in the HPI past medical history. Past Medical History: Problems: S/P total hip arthroplasty Right hip pain Lumbar foraminal stenosis Right lumbar radiculopathy Traumatic ecchymosis of foot Prophylactic Administration of Vaccine Against Other Diseases Peripheral polyneuropathy Tubular adenoma of colon Healthcare maintenance Prediabetes Hereditary and idiopathic neuropathy Cardiovascular disease Weight monitoring UNSPECIFIED INFLAMMATORY AND TOXIC NEUROPATHIES CAD PURE HYPERCHOLESTEROLEMIA Procedure History Procedure Procedure Date Comments 1 Stent placed 03/2010 Neuromo removal to right foot - 2008 CT angio of head w con - mild atherosclerotic involvment without hemodynamically significant stenosis CT of neck with con - 1. 50 stenosis at the origin and V2 segment of the right vertebral artery Colonoscopy 07/26/2022 - Pathology results demonstrated 2 tubular adenoma.Repeat colonoscopy in 5 years - COLO to cecum, 3 mm TC polyp CF, 4 mm sigmoid polyp CS, diverticulosis Lumbar epidural injection 01/22/2022 MRI of lumbar spine 10/20/2021 - Mild multilevel degenerative disc disease and moderate facet arthrosis within the lumbar spine. Platent central canal. Moderate multilevel neural foraminal stenosis1.9 cm focus of increased T2 signal along the right anterior aspect of the inferior endoplate of L2. This is likely degerative and likely reflects discogenic change. Marrow edema from nondisplaced fracture could appear similar althouh is considered less likely. CT of head 09/17/2020 - No acute intracranial hemorrhage no midline shift or space occupying lesions [facility] No acute bony abnormality is identified2. Degenerative change and heel spurs Colonoscopy 06/21/2017 - The entire examined colon is normal. The examined portion of the ileum was normal. The distal rectum and anal verge are normal on retroflexion view. No specimens collected. Laparoscopic repair of inguinal hernia Right total hip arthroplasty 05/31/2014 - Right Allergies and Sensitivities: NKA Current Home Meds: (Last Updated 12/24 11:05) amoxicillin (amoxicillin 500 mg oral capsule) 2,000 mg PO As indicated one hour before dental and other procedures as directed aspirin (Aspirin Low Dose 81 mg oral enteric coated tablet) 1 tab PO Daily atorvastatin (atorvastatin 40 mg oral tablet) 40 mg PO Daily clopidogrel (Plavix 75 mg oral tablet) 1 tab every other day cyanocobalamin (Vitamin B12 500 mcg oral tablet) 500 mcg PO Daily losartan (losartan 100 mg oral tablet) 100 mg PO Daily multivitamin (Vitamin B Complex) Vitals: Last Updated 12/25/23 10:32 Weights: Last Updated 12/25/23 10:32 Date Temp Pulse BP RR SpO2 FIO2 Date Wt(kg) Wt(lb) 12/24 10:32 36.5 140/60 20 98 12/24 10:32 80.8 178 12/24 10:32 80.8 178 24 Hr Tmax: 36.5 at 12/24 10:32 Initial Wt: 12/24 80.8 kg 178 lb Physical Exam: (relevant to the procedure, including heart and lung evaluation) General: Alert and oriented x 3 with proper grooming and hygiene. Eyes: Pupils are equal and reactive to light with accommodation. Extraocular movements are intact Throat: Posterior oropharynx clear with absence of edema, erythema or exudate. Dentition is appropriate. No sign of infection. Cardiac: Regular rate and rhythm with no murmurs or gallops appreciated Lungs: Clear to auscultation throughout with no wheezing, rales or rhonchi Abdomen: Nonobese, nondistended, nontender with NABS Extremities: Left hip; ROM: Flexion 95/ Abduction 25/ External rotation 50/ Internal rotation 0 PositiveLog roll Positive straight leg raise test Positive Stinchfield test Tenderness to palpation in the groin ANIL test causes pain at 2 fists Neuro: Cranial nerves II through XII are intact no motor or sensory deficit Skin: Normal in appearance with no open skin areas or discharge Studies (relevant to the procedure): 3 (AP pelvis, false profile, and cross table lateral) views ofthe left hip obtained today and personally interpreted by me taken at [facility] show moderately severe arthritis which is worst centrally Plan: Patient is scheduled to undergo this procedure at the [facility] with a 23-hour observation admission with Dr. Steele on January. Risks and complications of the procedure such as: Infection, bleeding, pain, scarring, nerve blood vessel damage, weakness, wound problems, stiffness, incomplete relief of symptoms, hardware failure, hardware loosening, wear, fracture, tendon or ligament injury, dislocation, leg length inequality, blood clots, Embolism, heart attack, stroke and were explained to the patient at his visit today. Informed consent toperform the procedure was obtained. Patient had his appointment with PAT before his right total hip arthroplasty back in January. He does not need another PAT appointment however we will need to obtain an updated CBC with differential, complete metabolic panel, PT/INR, urinalysis, urine culture and sensitivity, EKG, and a nasal culture for MRSA. I provided patient with orders to obtain the studies at his preoperative visit today. [facility] also [facility]. He states that he has an appointment scheduled for December 29. We have already received preoperative clearance from his manager site Dr. Massey. Patient states that he plans on doing in-home physical therapy for the first 1 to 2 weeks postoperatively with [facility]. Patient states that he will most likely elect to do outpatient physical therapy at our PT clinic. Patient states that he already has a raised toilet seat, shower chair, hip kit and a walker that he will bring with him on the morning of surgery. During today's visit we reviewed the total hip packetas well as precautions. We discussed discharge planning from the hospital. I provided paperwork to obtain a handicap placard for their vehicle. Patient states that he partook in the joint venture lectures before his past that surgery and does not feel that he needs to do it again. I advised the patient that upon discharge from hospital we will prescribe a narcotic pain medication and anti-inflamma tory. Patient will resume his Plavix postoperatively for blood clot prevention. Patient will be scheduled for 2-week postoperative follow-up visit with myself on January 28. This chart was completed utilizing [employer] voice recognition software. Grammatical errors,random word insertions, pronoun errors, and in complete sentences are an occasional consequence of the system. Any questions or concerns about the content, text, or information contained within the body of this dictation should be addressed directly to the physician for clarification. Electronic Signature on File CC: Raymond Massey MD [address] [facility] [address] [facility] [id number] * CC: Yulia Oh DO [address] [place] [address] [address] [place] [id number] Electronically Reviewed/Signed by: Donte Zarate PA-C Author Signature Dt/Tm:12/25/2023 03:41 PM Division of Sports Medicine Electronically Reviewed/Signed by: Con Steele MD Cosigner Signature Dt/Tm: 12/26/2023 03:19PM Division of Sports Medicine DC Patient Care team information Care Team Personnel Name: DO Reyes Franklin J Position: Physician - Family Med Member Role: Primary Care Provider Address: [address] [place] [address] [place] Name: Yaw Mccullough Position: HIS Supervisor_P Member Role: HIS Lifetime Care Team Related Persons Name: JULY CRISTINA
--- OUTSIDE RECORDS SUMMARY | 2024-01-16 09:49 | External Medical Summary | Continuity of Care Document ---
Author Name Unknown Organization [facility] [address] [place] [address] [place] [phone] Care Team Providers Care Sales Vice President Name Role Phone Geraldo Reyes Primary Care Physician [phone] Encounter [facility] [id number] Date(s): 01/03/24 - 01/03/24 [facility] [address] [facility] [address] [address] [phone] Encounter Diagnosis Preop examination(Discharge Diagnosis) - 01/03/24 Body mass index [BMI] 23.0-23.9, adult(Discharge Diagnosis) - 01/03/24 Discharge Disposition: Home or Self Care Attending Physician: MD Germaine, Olayinka Mascorro Allergies, Adverse Reactions, Alerts No Known Allergies Assessment and Plan Extracted from: Title:FCM: preop hip Author:DO Oh Amanda Date:01/03/24 1.Preop examination Data:_ReviewedCBC,CMP,PT/LOIuvdi5012/25/2023, EKGsinus brady12/24 Plan: Revised Cardiac Risk Index: Score [1]. This patient is a Class II risk for an intermediaterisk surgery. The patient is medically optimized to get the proposedsurgery at this time. [_] High Risk Surgery [X] Ischemic Heart Disease [_] History of CHF [_] History of cerebrovascular disease [_] Insulin therapy for DM [_] Pre-op Cr >2 Advised pt to be very careful post-operatively given syncope last year. Did also talk to him about his blood pressure today. He would like to continue to follow with Dr. Black his blood pressure and have any medications through him. Immunizations Given and Recorded Vaccine Date Status Refusal Reason zoster vaccine, inactivated 1 03/11/19 Recorded zoster vaccine, inactivated 03/11/18 Recorded pneumococcal 23-valent vaccine 1/12/18 Given pneumococcal 13-valent vaccine 02/24/16 Given tetanus/diphtheria/pertuss, acel (Tdap) 02/11/15 G iven zoster vaccine live 06/28/12 Recorded tetanus toxoids-diphtheria, Td (Adult) 04/16/07 Re corded 1Result Comment: #2 Medications amoxicillin 500 mg oral capsule Start: 12/25/23 11:05:00 AM EDT, 4 cap, PO, As indicated, Disp# 12 cap, Refills: 3, one hour beforedental and other procedures as directed, Pharmacy: [facility]/pharmacy #[id number] Start Date: 12/25/23 Status: Ordered Aspirin Low [...] Start Date: 07/20/20 Status: Ordered Mental Status 01/03/24 Barriers to Learning one year None evide nt Mandatory Health Literacy Documentation Yes Health Literacy Communication Barriers N ever Primary Language Thai Problem List Condition Confirmation Course Effective Dates [...] Effective Dates Health Status Clinical Service Informant Preop examination Discharge Diagnosis 01/03/24 Non-Specified Body mass index [BMI] 23.0-23.9, adult Discharge Diagnosis 01/03/24 Non-Specified Procedures Procedure Date Related Diagnosis Body Site [...] midline shift or space occupying lesions [facility] Impression: 1. No acute bony abnormality is [...] V2 segment of the right vertebral artery [id number] Vital Signs Most recent to oldest [Reference Range]: 1 Height 189 cm (01/03/24 9:53 AM) Patient Weight 83.1 kg (01/03/24 9:53 AM) Body Mass Index 23.26 kg/m2 (01/03/24 9:53 AM) Temperature [36.5-37.9 DegC] 36.5 DegC (01/03/24 9:53 AM) Heart Rate 66 bpm (01/03/24 9:53 AM) Respiratory Rate 18 br/min (01/03/24 9:53 AM) Blood Pressure 174/76mmHg (01/03/24 9:53 AM) Cuff Pulse Pressure 98 mmHg (01/03/24 9:53 AM) Social History Social History Type Response Smoking Status Never smoked cigaret kavita Sex Male Sex Representation Male (finding) FCM Outpt Note * MD Herron Joseph P: MODIFY MD Herron Joseph P: MODIFY Event Display: FCM Outpt Note Authored Date: Chief Complaint pre op History of Present Illness Pt is a 73 yo male planning to have total hip replacement L on 01/[address] Steele. Requested by/Surgeon: Dr. Con Steele Planned surgery:intermediate risk (intraperitoneal, intrathoracic, CEA, head/neck, ortho, prostate) Planned anesthesia:general Exercise tolerance:4 METs (climbing 1 flight, walking up hill, level ground @ 4mph, heavy house work) Bleeding tendency/history:No Substance use per social history in EHR Prior response to anesthesia: None. lastyearhad R hipdone. HxMI/CVA:Stentsplaced [id number],no issues since, follows with Dr. Tao is aware ofsurgery Hxblood clots: No Did notice that last year after other hipreplacement onthe day of dischargedid have a syncopal episode while walking around, but none since then. Follows with Dr. Massey whohas cleared him for this procedure. Advised he be very careful postoperatively. Review of Systems Per HPI. Physical Exam Vitals & Measurements T:36.5C HR:66(Monitored) RR:18 BP:174/76 SpO2:97% HT:189cm WT:83.100kg(Dosing) WT:83.1kg BMI:23.26 PHQ2 Data(Data Documented on:01/03/2024 09:53) Emotional health assessment NEGATIVE General:Alert and oriented, no acute distress, HEENT: Normocephalic, moist oral mucosa, Cardiovascular:Regular rate and rhythm, no murmur, Respiratory:Lungs clear to auscultation b/l, no wheezes or rhonchi, Gastrointestinal:Soft and nontender, nondistended, bowel sounds active Integumentary:Warm, pink, dry, Assessment/Plan 1.Preop examination Data:_ReviewedCBC,CMP,PT/BWYnsdg9012/25/2023, EKGsinus brady12/24 Plan: Revised Cardiac Risk Index: Score [1]. This patient is a Class II risk for an intermediaterisk surgery. The patient is medically optimized to get the proposedsurgery at this time. [_] High Risk Surgery [X] Ischemic Heart Disease [_] History of CHF [_] History of cerebrovascular disease [_] Insulin therapy for DM [_] Pre-op Cr >2 Advised pt to be very careful post-operatively given syncope last year. Did also talk to him about his blood pressure today. He would like to continue to follow with Dr. Black his blood pressure and have any medications through him. Attestation I saw patient and was present for the ramírez portions of the history and physical. I agree with theresident's note and plan as documented in the resident's note. Medically cleared for hip replacement with caution post-op with history of syncope. Laly Herron Problem List/Past Medical History Ongoing CAD Cardiovascular disease Healthcare maintenance Hereditary and idiopathic neuropathy Lumbar foraminal stenosis Peripheral polyneuropathy Prediabetes PURE HYPERCHOLESTEROLEMIA Right hip pain Right lumbar radiculopathy S/P total hip arthroplasty Traumatic ecchymosis of foot Tubular adenoma of colon UNSPECIFIED INFLAMMATORY AND TOXIC NEUROPATHIES Weight monitoring Procedure/Surgical History Colonoscopy| Service Date: 07/26/2022Lumbar epidural injection| Service Date: 01/22/2022MRI of lumbar spine| Service Date: 2CT of head| Service Date: 09/17/2020X-ray of left foot| Service Date: 08/05/2020olonoscopy| Service Date: 06/21/2017Laparoscopic repair of inguinal hernia| Service Date: 05/31/2014Neuromo removal to right foot1 Stent placed 03/2010CT ofneck with conCT angio of head w con Medications amoxicillin(amoxicillin 500 mg oral capsule), 2000 mg= 4 cap, PO, As indicated, 3 refills aspirin(Aspirin Low Dose 81 mg oral enteric [...] Alcohol Use:Current Frequency:1-2 times per month Employment/School Status:Retired Substance Abuse - Denies Substance Abuse Tobacco - Denies Tobacco Use Family History Hypertension: Mother. Health Status Family Member(s) Sister: History is negative Family Member(s) Relationship: Mother, Age: Unknown, Cause: Age 97 Relationship: Father, Age: 82 Years Immunizations Vaccine Date Status zoster vaccine, inactivated 2019 Recorded Comments : #2 zoster vaccine, inactivated 2018 Recorded pneumococcal 23-valent vaccine 03/22/2017 Given pneumococcal 13-valent vaccine 02/24/2016 Given tetanus/diphtheria/pertuss, acel (Tdap) 02/11/2015 Given zoster vaccine live 06/28/2012 Recorded tetanus toxoids-diphtheria, Td (Adult) 04/16/2007 Recorded Recommendations Health Maintenance Pending(in the next year) OverDue Adult Influenza Vaccine due09/08/23and every 1year Due Adult COVID-19 Vaccination due01/03/24Unknown Frequency Adult Social Determinants of Health Screening due01/03/24Unknown Frequency Hepatitis C Screening due01/03/24One-time only Shingles Vaccine due01/03/24One-time only Due In Future Medicare Annual Wellness Visit not due until07/25/24and every 1year Satisfied(in the past 1 year) Satisfied Body Mass Index on01/03/24.Satisfied by COLE Briseno [place] Lipid Screening on07/26/23.Satisfied by Contributor_system, [id number] Medicare Annual Wellness Visit on07/26/23.Satisfied by SYSTEM Electronic Signature on File Electronically Reviewed/Signed by: Yulia Oh DO Author Signature Dt/Tm:01/03/2024 10:46 AM Resident Department of Family Medicine Electronically Reviewed/Signed by: Olayinka Herron MD Cosigner Signature Dt/Tm: 01/03/2024 10:59AM Department of Family Medicine AB Patient Care team information Care Team Personnel Name: DO Reyes Franklin J Position: Physician - Family Med Member Role: Primary Care Provider Address: [facility] [place] [address] [place] Name: Yaw Mccullough Position: HIS Supervisor_P Member Role: HIS Lifetime Care Team Related Persons Name: JULY CRISTINA"
--- NOTE | 2024-01-16 10:05 | Operative Report ---
Post Operative Report Pre & Post Diagnosis Operation Date: 01/16/24 08:15 Pre-Op Diagnosis: Left Hip Osteoarthritis Post-Op Diagnosis: Left Hip Osteoarthritis I identified the patient and participated in the time-out.: Yes Procedure Operation Date: 01/16/24 08:15 Actual Procedures p Left Total Hip Arthroplasty, Uncemented(Left) - Con Steele MD Surgeon Con Steele MD Milk Collector Diane Zarate PAPetra Estimated Blood Loss 50 Findings Consistent with Post-Op Diagnosis Specimens femoral head Description of Procedure I was present during the entire case assisting with positioning, prepping, draping, wound retraction, wound closure, dressing and abduction pillow placement. No fellow present. Please see Dr. Steele procedure note for specifics of the case. I attest to the content of the Intraoperative Record and any orders documented therein. Any exceptions are noted below.
[2024-01-16] MEDS ORDERED: METOCLOPRAMIDE HCL INJ 5 MG/ML 2 ML VIAL IV PRN (10:06)
[2024-01-16] MEDS ORDERED: bisacodyL 10 MG SUPP PR PRN (10:06)
[2024-01-16] MEDS ORDERED: MAGNESIUM HYDROXIDE SUSP 30 ML UDC PO PRN (10:06)
[2024-01-16] MEDS ORDERED: oxyCODONE HCL IR 5 MG TAB (IMMEDIATE RELEASE) PO PRN (10:06)
[2024-01-16] MEDS ORDERED: ALUMINUM/MAGNESIUM SUSP 30 ML UDC PO PRN (10:06)
[2024-01-16] MEDS ORDERED: TAMSULOSIN HCL 0.4 MG CAP PO PRN (10:06)
[2024-01-16] MEDS ORDERED: traMADol HCL 50 MG TABLET PO PRN (10:06)
[2024-01-16] MEDS ORDERED: diphenhydrAMINE 50 MG/ML VIAL IV PRN (10:06)
[2024-01-16] MEDS ORDERED: NALOXONE HCL 0.4 MG/1 ML VIAL/CARP IV PRN (10:06)
[2024-01-16] MEDS ORDERED: NITROGLYCERIN SL 0.4 MG/TAB TAB SL PRN (10:09)
--- NOTE | 2024-01-16 10:10 | Operative Report ---
Post Operative Report Pre & Post Diagnosis Operation Date: 01/16/24 08:15 Pre-Op Diagnosis: Left Hip Osteoarthritis Post-Op Diagnosis: Left Hip Osteoarthritis I identified the patient and participated in the time-out.: Yes Procedure Operation Date: 01/16/24 08:15 Actual Procedures p Left Total Hip Arthroplasty, Uncemented(Left) - Con Steele MD Surgeon Con Steele MD Track Greaser DOLORES Zarate PA-C. No resident or fellow was available to assist. Estimated Blood Loss 50 Findings Consistent with Post-Op Diagnosis Specimens Left femoral head Anesthesia Type Spinal MAC Complications none Disposition Disposition: Recovery Room Indications 73-year-old male with left hip osteoarthritis refractory to conservative management. Is previously undergone a right total hip arthroplasty by myself with a good result. He desires to have the same operation performed on the left hip. I had a long discussion with him about the risks and benefits of surgery, alternatives to surgery, and expected outcomes. After reviewing all these he elected to proceed with surgery. All questions were answered. Informed consent was signed. Description of Procedure Patient was identified in the preoperative holding area where the surgical site, left hip, was marked. A spinal anesthetic was placed, then the patient was brought back to the main operating room, placed in the operating table and moved into the lateral decubitus position. Axillary roll was placed. All bony prominences were padded. Perioperative antibiotics and tranexamic acid 1 gram IV were administered. The operative extremity was prepped and draped in the normal sterile fashion. Prior to incision a multidisciplinary timeout was called. All in the room were in agreement. We began by making an incision for a posterior approach to the hip. We dissected down through subcutaneous tissues to the level of the fascia. The fascia was incised in line with the incision. Charnley bow was placed. Fatty tissue was reflected posteriorly off the back of the greater trochanter to expose the piriformis and short external rotators of the hip. Quadratus femoris was taken off the femur subperiosteally. The piriformis and short external rotators were dissected off the posterior aspect of the hip. A box cut was made in the capsule. Inferior hip capsule was released off the femur. The femoral head was dislocated. Electrocautery was used to make hairston on the intertrochanteric ridge and center of the femoral head and this distance was measured at 66 mm. The femoral neck cut was made at our preoperative template. The acetabulum was then exposed. The labrum was sharply excised. Contents of the cotyloid fossa were removed with electrocautery. We then began reaming at a size 8 mm less than our preoper ative template. We reamed up by [address] the way up to a size 60 distance between the mm cup. This gave us good bleeding cancellus bone circumferentially. The acetabulum was then irrigated out and dried. The real [place] Gription cup was then impacted down into position with 45 degrees of lateral opening and 25 degrees of anteversion. Two cancellous bone screws were placed up into the ilium. Excellent fixation was obtained. A +4, 10 degree face changing trial liner for a 36 mm femoral head was then placed to match his other side. Next we turned our attention to the femur. The lateral neck was removed with a box osteotome. Intramedullary guide was used to establish the intramedullary canal. We then broached all the way up to a size 12 Actis stem. We began trialing with a high offset neck and a +5 head. Hip was reduced. Leg lengths were symmetric. The hip was stable in extension and external rotation, and stable in the sleeper position. At 90 degrees of hip flexion the hip could be internally rotated 50 degrees before levering out of the cup. I was very happy with the stability exam. Therefore the hip was dislocated and the femoral trial was removed. The acetabulum was re-exposed, and the trial liner was removed. [place] hole eliminator screw was placed. The real +4, 10 degree face changing Altrx polyethylene liner for a 36 mm femoral head was then impacted into the shell. The locking mechanism was checked to ensure that it had engaged which it had. The femur was re-exposed. The femoral canal was irrigated and dried. The real Actis femoral stem was opened up. This was impacted down into position. The femoral head was opened up and gently impacted down onto the trunnion. The hip was atraumatically reduced. Another 1 gram of IV tranexamic acid was started prior to closure. The wound was irrigated out with sterile Betadine solution. The periarticular injection cocktail was then placed. The short external rotators, piriformis, and posterior capsule were repaired through drill holes in the greater trochanter using #2 Vicryl. The fascia was run with a looped #1 PDS. The subcutaneous layer was closed with #1 PDS. The dermal layer was closed with 2-0 Vicryl. Zip line was used for the skin followed by a Silverlon dressing. A compressive dressing was then placed. The patient was then rolled supine. Leg lengths were rechecked and were symmetric. An abduction pillow was placed. Sedation was lifted and the patient was transferred to the recovery room in stable condition. Summary of implants: Depuy Waterloo Gription Acetabular Shell Sector Cup, 60 mm outer diameter Two [place] Cancellous bone screws, 6.5 x 40 and 25 mm respectively Westport hole eliminator +4, 10 degree face changing Waterloo Altrx Polyethylene Acetabular Liner with a 36 mm inner diameter DePuy Actis collared cementless Femoral stem, 12/14 taper, size 12 high offset 36 mm ceramic femoral head with +5 offset Postoperative course: Patient will be admitted overnight from the recovery room. Patient will be weightbearing as tolerated with posterior hip precautions. Resume Plavix for DVT prophylaxis I attest to the content of the Intraoperative Record and any orders documented therein. Any exceptions are noted below.
--- NOTE | 2024-01-16 10:39 | Anesthesiology Progress Note ---
Date of Service January 16, 2024 Anesthesia Post Procedure Vital Signs Vital Signs: Temp Pulse Pulse Resp BP BP Pulse Ox 01/16/24 10:30 60 16 134/60 97 01/16/24 10:20 60 14 130/56 L 100 01/16/24 10:10 59 L 14 126/56 L 100 01/16/24 10:04 36.0 C L 65 14 133/57 L 100 01/16/24 07:10 36.6 C 65 16 156/78 H 97 O2 Del Method O2 Flow Rate 01/16/24 10:30 Room Air 01/16/24 10:20 Oxymask 5 01/16/24 10:10 Oxymask 5 01/16/24 10:04 Oxymask 5 01/16/24 07:10 Room Air Pain Intensity Left Hip: Pain Intensity: 8 Transfer of Care Handoff Completed per policy Notes Mental Status: alert / awake / arousable Patient Amnestic to Procedure: Yes Nausea / Vomiting: adequately controlled Pain: adequately controlled Airway Patency, RR, SpO2: stable & adequate BP & HR: stable & adequate Hydration State: stable & adequate Neuraxial Anesthesia: was administered and sensory block is resolving Anesthetic Complications: no major complications apparent and Pt Satisfied with anesthetic care
--- NOTE | 2024-01-16 11:25 | XRay Report ---
XR pelvis 1-2V routine CLINICAL HISTORY: Postoperative evaluation. COMPARISON: Pelvis and left hip radiographs October 04, 2023. FINDINGS: Alignment of the left hip arthroplasty is anatomic. No periprosthetic fracture or unexpect ed radiopaque foreign bodies present. Right hip arthroplasty is also intact. There are scrotal surgic al clips. IMPRESSION: Expected findings following total left hip arthroplasty. ACT 112: Negative or not required by law. Electronically signed by: Abel Chan M.D. 01/16/2024 11:24 AM
[2024-01-16 11:32] VITALS: RESP 16
[2024-01-16] MEDS: KETOROLAC TROMETHAMINE 15 MG/ML VIAL IV SCH (11:58)
[2024-01-16] MEDS: Scopolamine CHECK PATCH PLACEMENT SCH (17:13)
[2024-01-16] MEDS: SENNA 8.6 MG TAB PO SCH (21:40)
[2024-01-16] MEDS: DOCUSATE SODIUM 100 MG CAP PO SCH (21:40)
[2024-01-16] MEDS: LOSARTAN POTASSIUM 50 MG TAB PO SCH (21:40)
[2024-01-16] MEDS: ATORVASTATIN 40 MG TAB PO SCH (21:40)
[2024-01-17 06:09] LABS: Basophils # (auto) 0.02 K/uL (0.00-0.20); Basophils % (auto) 0.1 %; Hematocrit (blood only) 33.6 % (42.0-52.0); Hemoglobin 11.3 g/dl (14.0-18.0); Immature Granulocytes # (auto) 0.07 K/uL (0.01-0.20); Immature Granulocytes % (auto) 0.5 %; Lymphocytes # (auto) 0.83 K/uL (1.20-3.40); Lymphocytes % (auto) 5.5 %; Mean Corpuscular Hemoglobin 29.7 pg (25.0-34.0); Mean Corpuscular Hgb Conc 33.6 g/dL (32.0-36.0); Mean Corpuscular Volume 88.2 fL (80.0-100.0); Mean Platelet Volume 10.7 fL (9.4-12.4); Monocytes # (auto) 1.37 K/uL (0.11-0.59); Monocytes % (auto) 9.1 %; Neutrophils # (auto) 12.69 K/uL (1.40-6.50); Neutrophils % (auto) 84.8 %; Platelet Count 180 K/uL (130-400); RDW Coefficient of Variation 14.4 % (11.5-14.5); RDW Standard Deviation 46.3 fL (36.4-46.3); Red Blood Count 3.81 M/uL (4.70-6.10); White Blood Count 14.98 K/ul (4.8-10.8)
[2024-01-17 06:22] LABS: BUN Creatinine Ratio 20.5 (10-20); Calcium 9.1 mg/dl (8.6-10.3); Creatinine Clr Calc Pharmacy 66.8 ml/min; Potassium 4.5 mmol/L (3.5-5.1)
[2024-01-17 07:23] VITALS: TEMP 97.5
[2024-01-17] MEDS: ASPIRIN 81 MG ECTAB PO SCH (08:01)
[2024-01-17] MEDS: MULTIVITAMIN TAB PO SCH (08:01)
[2024-01-17] MEDS: CLOPIDOGREL BISULFATE 75 MG TAB PO SCH (08:01)
[2024-01-17] MEDS: dexAMETHasone 4 MG TAB PO SCH (08:01)
[2024-01-17] MEDS: VITAMIN B COMPLEX TAB PO SCH (08:02)
[2024-01-17] MEDS: CYANOCOBALAMIN (B-12) 2,500 MCG TABLET PO SCH (08:02)
--- NOTE | 2024-01-17 09:11 | Orthopedic Progress Note ---
Date of Service January 17, 2024 Assessment & Plan (1) S/P total hip arthroplasty: Plan: Total hip precautions reviewed Weightbearing as tolerated with walker assistance Abduction pillow use x 6 weeks Ice with easy wrap Pain control with p.o. medication DVT prophylaxis with aspirin and Plavix Keep Silverlon dressing in place PT/OT Plan is to discharge home later today with in-home physical therapy Follow-up with [facility] orthopedics as previously scheduled With questions contact our clinic at [phone] Admission and Anticipated Discharge Date Admission Date: January 16, 2024 Subjective This 73-year-old male is day 1 status post left total hip arthroplasty. He states he is doing very well. He states that he has been able to transition from his bed to the bathroom several times without issue with the assistance of his walker. He is hoping to be discharged home later this morning. Currently he denies chest pain, shortness of breath, fever, chills, sweats, nausea, vomiting, diarrhea or numbness or tingling in his left lower extremity. Review of Systems Review of Systems: All systems reviewed & are unremarkable except as noted in Subjective Physical Exam Physical Exam: Left hip; Outer dressing was removed. Silverlon is clean dry and intact and left in place. Patient is able to perform active straight leg raise test. He is able to actively dorsi and plantarflex foot. He tolerates light passive hip flexion near 90 degrees and only feels a slight pulling sensation with light passive internal rotation. He has no discomfort with passive external rotation. His quad strength is 3+ out of 5. He is neurovascularly intact. Results & Data Vital Signs (Past 12 Hours) Vital Signs Temp Pulse Pulse Resp BP BP Pulse Ox 01/17/24 07:16 36.4 C L 69 16 139/58 L 97 01/17/24 03:58 36.7 C 76 16 123/61 97 01/17/24 00:00 36.4 C L 68 16 160/76 H 96 O2 Del Method 01/17/24 07:16 Room Air 01/17/24 03:58 Room Air 01/17/24 00:00 Room Air Diagnostic Findings Laboratory Results WBC 14.98 K/ul (4.8-10.8) H 01/17/24 05:33 RBC 3.81 M/uL (4.70-6.10) L 01/17/24 05:33 Hgb 11.3 g/dl (14.0-18.0) L 01/17/24 05:33 Hct 33.6 % (42.0-52.0) L 01/17/24 05:33 MCV 88.2 fL (80.0-100.0) 01/17/24 05:33 MCH 29.7 pg (25.0-34.0) 01/17/24 05:33 MCHC 33.6 g/dL (32.0-36.0) 01/17/24 05:33 RDW Std Deviation 46.3 fL (36.4-46.3) 01/17/24 05:33 RDW Coeff of Marcelo 14.4 % (11.5-14.5) 01/17/24 05:33 Plt Count 180 K/uL (130-400) 01/17/24 05:33 MPV 10.7 fL (9.4-12.4) 01/17/24 05:33 Immature Gran % (Auto) 0.5 % 01/17/24 05:33 Neut % (Auto) 84.8 % 01/17/24 05:33 Lymph % (Auto) 5.5 % 01/17/24 05:33 Zavala % (Auto) 9.1 % 01/17/24 05:33 Eos % (Auto) 0.0 % 01/17/24 05:33 Baso % (Auto) 0.1 % 01/17/24 05:33 Neut # (Auto) 12.69 K/uL (1.40-6.50) H 01/17/24 05:33 Lymph # (Auto) 0.83 K/uL (1.20-3.40) L 01/17/24 05:33 Zavala # (Auto) 1.37 K/uL (0.11-0.59) H 01/17/24 05:33 Eos # (Auto) 0.00 K/uL (0.00-0.50) 01/17/24 05:33 Baso # (Auto) 0.02 K/uL (0.00-0.20) 01/17/24 05:33 Immature Gran # (Auto) 0.07 K/uL (0.01-0.20) 01/17/24 05:33 PT 10.7 Seconds (9.0-12.0) 01/16/24 07:07 INR 1.0 (0.9-1.1) 01/16/24 07:07 APTT 27 Seconds (21-31) 01/16/24 07:07 PTT Ratio 1.0 01/16/24 07:07 Sodium 137 mmol/L (136-145) 01/17/24 05:33 Potassium 4.5 mmol/L (3.5-5.1) 01/17/24 05:33 Chloride 106 mmol/L (98-107) 01/17/24 05:33 Carbon Dioxide 25 mmol/L (21-32) 01/17/24 05:33 Anion Gap 6 (3-11) 01/17/24 05:33 BUN 23 mg/dl (6-23) 01/17/24 05:33 Creatinine 1.12 mg/dl (0.6-1.4) 01/17/24 05:33 Est Cr Clr Drug Dosing 66.8 ml/min 01/17/24 05:33 eGFR 68.94 01/17/24 05:33 BUN/Creatinine Ratio 20.5 (10-20) H 01/17/24 05:33 Glucose 113 mg/dl (70-99(Fasting)) H 01/17/24 05:33 Calcium 9.1 mg/dl (8.6-10.3) 01/17/24 05:33 Blood Type A Positive 01/16/24 07:07 Antibody Screen NEGATIVE 01/16/24 07:07 Impressions Pelvis X-Ray 01/16/24 10:06 XR pelvis 1-2V routine CLINICAL HISTORY: Postoperative evaluation. COMPARISON: Pelvis and left hip radiographs October 04, 2023. FINDINGS: Alignment of the left hip arthroplasty is anatomic. No periprosthetic fracture or unexpected radiopaque foreign bodies present. Right hip arthroplasty is also intact. There are scrotal surgical clips. IMPRESSION: Expected findings following total left hip arthroplasty. ACT 112: Negative or not required by law. Electronically signed by: Abel Chan M.D. 01/16/2024 11:24 AM
--- NOTE | 2024-01-17 09:20 | Discharge Summary ---
Date of Service January 17, 2024 Admission HPI Per Admitting Provider History of Present Illness (including history relevant to procedure): 73-year-old male presents to clinic today for his preoperative history and physical. His pain radiates from his hip down his entire leg and worsens when ambulating. The pain is similar to his right side prior to right WALTER.He also has a stiff back and has difficulty bending over to put on socks. He does not have any numbness or tingling other than his baselineneuropathy, which is stable. He is still on Plavix. Review Of Systems: A 12 point review of systems is performed and is unremarkable except for those things stated in the HPI past medical history. Past Medical History: Problems: S/P total hip arthroplasty Right hip pain Lumbar foraminal stenosis Right lumbar radiculopathy Traumatic ecchymosis of foot Prophylactic Administration of Vaccine Against Other Diseases Peripheral polyneuropathy Tubular adenoma of colon Healthcare maintenance Prediabetes Hereditary and idiopathic neuropathy Cardiovascular disease Weight monitoring UNSPECIFIED INFLAMMATORY AND TOXIC NEUROPATHIES CAD PURE HYPERCHOLESTEROLEMIA Procedure History Procedure Procedure Date Comments 1 Stent placed 03/2010 Neuromo removal to right foot - 2008 CT angio of head w con - mild atherosclerotic involvment without hemodynamically significant stenosis CT of neck with con - 1. 50 stenosis at the origin and V2 segment of the right vertebral artery Colonoscopy 07/26/2022 - Pathology results demonstrated 2 tubular adenoma.Repeat colonoscopy in 5 years - COLO to cecum, 3 mm TC polyp CF, 4 mm sigmoid polyp CS, diverticulosis Lumbar epidural injection 01/22/2022 MRI of lumbar spine 10/20/2021 - Mild multilevel degenerative disc disease and moderate facet arthrosis within the lumbar spine. Platent central canal. Moderate multilevel neural foraminal stenosis1.9 cm focus of increased T2 signal along the right anterior aspect of the inferior endoplate of L2. This is likely degerative and likely reflects discogenic change. Marrow edema from nondisplaced fracture could appear similar althouh is considered less likely. CT of head 09/17/2020 - No acute intracranial hemorrhage no midline shift or space occupying lesions [facility] No acute bony abnormality is identified2. Degenerative change and heel spurs Colonoscopy 06/21/2017 - The entire examined colon is normal. The examined portion of the ileum was normal. The distal rectum and anal verge are normal on retroflexion view. No specimens collected. Laparoscopic repair of inguinal hernia Right total hip arthroplasty 05/31/2014 - Right Allergies and Sensitivities: NKA Current Home Meds: (Last Updated 12/24 11:05) amoxicillin (amoxicillin 500 mg oral capsule) 2,000 mg PO As indicated one hour before dental and other procedures as directed aspirin (Aspirin Low Dose 81 mg oral enteric coated tablet) 1 tab PO Daily atorvastatin (atorvastatin 40 mg oral tablet) 40 mg PO Daily clopidogrel (Plavix 75 mg oral tablet) 1 tab every other day cyanocobalamin (Vitamin B12 500 mcg oral tablet) 500 mcg PO Daily losartan (losartan 100 mg oral tablet) 100 mg PO Daily multivitamin (Vitamin B Complex) Initial Wt: 12/24 80.8 kg 178 lb Admission Exam Per Admitting Provider Physical Exam: (relevant to the procedure, including heart and lung evaluation) General: Alert and oriented x 3 with proper grooming and hygiene. Eyes: Pupils are equal and reactive to light with accommodation. Extraocular movements are intact Throat: Posterior oropharynx clear with absence of edema, erythema or exudate. Dentition is appropriate. No sign of infection. Cardiac: Regular rate and rhythm with no murmurs or gallops appreciated Lungs: Clear to auscultation throughout with no wheezing, rales or rhonchi Abdomen: Nonobese, nondistended, nontender with NABS Extremities: Left hip; ROM: Flexion 95/ Abduction 25/ External rotation 50/ Internal rotation 0 PositiveLog roll Positive straight leg raise test Positive Stinchfield test Tenderness to palpation in the groin ANIL test causes pain at 2 fists Neuro: Cranial nerves II through XII are intact no motor or sensory deficit Skin: Normal in appearance with no open skin areas or discharge Principal Diagnosis Left hip osteoarthritis Discharge Exam Left hip; Outer dressing was removed. Silverlon is clean dry and intact and left in place. Patient is able to perform active straight leg raise test. He is able to actively dorsi and plantarflex foot. He tolerates light passive hip flexion near 90 degrees and only feels a slight pulling sensation with light passive internal rotation. He has no discomfort with passive external rotation. His quad strength is 3+ out of 5. He is neurovascularly intact. Discharge Data Allergies Allergy/AdvReac Type Severity Reaction Status Date / Time chlorhexidine Allergy Intermediate Redness of Verified 01/16/24 07:37 Skin Procedures Performed Operation Date: 01/16/24 08:15 Actual Procedures p Left Total Hip Arthroplasty, Uncemented(Left) - Con Steele MD Hospital Course (1) S/P total hip arthroplasty: Patient had uneventful overnight stay following left total hip arthroplasty. He is doing very well this morning. He is anxious to be discharged home. He states that he will begin in-home physical therapy later this weekend. Total hip precautions reviewed Weightbearing as tolerated with walker assistance Abduction pillow use x 6 weeks Ice with easy wrap Pain control with p.o. medication DVT prophylaxis with aspirin and Plavix Keep Silverlon dressing in place PT/OT Plan is to discharge home later today with in-home physical therapy Follow-up with [facility] orthopedics as previously scheduled With questions contact our clinic at [phone] Total Time Total Time Spent Total Time Spent (In Minutes): 20 minutes Discharge Plan Discharge Items Patient Disposition: Home - Home Health Services Reason For Visit: Left Hip Osteoarthritis Discharge Diagnosis: s/p left total hip arthroplasty Activity: As commented below Lifting: None Bathing: Keep incision dry Bathing Comment: May shower today Sexual Activity: Wait until after follow-up appointment Exercise/Sports: Wait until after follow-up appointment Driving/Machine Use: No driving until cleared by public transit specialist Weightbearing: Left weightbearing Weightbearing Comment: As tolerated with walker assistance Non-emergency contact: Surgeon Follow-up/Referrals: Geraldo Reyes DO [Primary Care Provider] - Diet: Regular Addtl Attending Provider Instructions: Post-operative Instructions Dear Patient and Family/Friends, Before you are discharged from the hospital, it is important to know what to expect when you get home after surgery. To that end, we have created this sheet of discharge instructions which covers many commonly asked questions. Make sure you go through this sheet in its entirety with your nurse before you are discharged. Please note that we will go over the specifics of your surgery and recovery when you return for your first post-operative visit. Sincerely, Dr. Steele Medications 1. Oxycodone 5 mg tablet: Take 1-2 tabs every 4-6 hours as needed for pain control. A prescription for this medication will be sent to your pharmacy. 2. Diclofenac sodium 75 mg: Take 1 tablet twice daily for the first 30 days postoperatively for pain and inflammation relief. A prescription will be sent to your pharmacy for this medication as well. 3. Resume your daily Plavix and aspirin regimen. Increase your aspirin to 1 tab twice daily and use your Plavix on a daily basis for blood clot prevention. 4. Extra strength Tylenol 500 mg: Take 2 tabs every 6-8 hours as needed for additional pain relief. Please purchase the medication. Pain Expect to be in a fair amount of pain after surgery. Remember, our goal is not to eliminate your pain, but to make it tolerable. It is a good idea to stay ahead of your pain by taking the medications you were prescribed once you get home. Typically, the pain starts improving 3-7 days after surgery. You should start weaning off the narcotic pain medication (oxycodone, hydrocodone, hydromorphone, morphine) as soon as your pain improves. Please call our office if your pain is not adequately controlled. Ice Ice your operative site at least 5 times a day for 15-30 minutes at a time. Make sure you have a thin cloth between the ice or cooling unit and your skin to prevent serna bite. This is especially important if you received a nerve block. Continue icing your operative site for the first 5-7 days after surgery, then as needed. Diet/Nausea/Vomiting Start by drinking clear liquids and eating crackers. If you can tolerate this, then you may resume your normal diet. If you feel nauseated or vomit, take Zofran/ondansetron (if prescribed). Please call our office if you have intractable nausea or vomiting, or, if after hours, you may go to the Emergency Room for help. Constipation Constipation is a common side effect of narcotic pain medication. If you have not had a bowel movement within 2 days after surgery, we recommend purchasing an over the counter laxative such as Milk of Magnesia, Dulcolax, or Miralax from a local pharmacy, and taking it as instructed. Call our clinic if any questions. Nerve block The anesthesia team sometimes places a nerve block to help with post-operative pain control. This results in significant numbness and inability to move the extremity. The nerve block usually wears off in 8-12 hours, but sometimes can last up to 24 hours. Please call our office if you are still unable to move your extremity after 24 hours, unless you received a pain pump to take home. Nerve blocks typically wear off quickly, so start taking pain medication as soon as you start feeling soreness near your surgical site. Weight bearing and Range of Motion. Do not bear any weight through your operative extremity immediately after surgery. If you had upper extremity surgery, do not lift anything with that arm. If you are in a knee brace, keep it locked in place until your follow-up. We will discuss your weight bearing, range of motion, and lifting restrictions in detail at your first post-operative appointment. Continuous Passive Motion (CPM) Machine If you were prescribed a CPM machine, it will start after your first post- operative appointment, at which time we will give you instructions on the range of motion settings and duration of treatment Physical therapy You will be given a prescription for physical therapy or occupational therapy at your first post-operative appointment. Typically, patients start therapy within 1 week of surgery Wound care and showering We will inspect your wound at your first post-operative visit, and may do a dressing change at that time. Most patients will be in a water-proof dressing that is removed 14 days after surgery. It is normal to see some dried blood on the dressing. Do not remove your dressing, paper strips or sutures yourself unless you are given permission. Showering is allowed the day after surgery. Do not scrub or remove any dressings. The wound should not be submerged underwater (i.e. in a bathtub or pool) until 4 weeks after surgery DAVID stockings If you were given white stockings, these are to be worn at all times except to shower (on both legs) for the first 2 weeks after surgery. Driving You may not drive while taking narcotic pain medication or while in a cast, splint, sling or brace. You, the patient, need to make the final determination about when you are safe to drive, however, the earliest you may consider driving after surgery is below: Hand/Wrist/Elbow Surgery: 3 days Shoulder Surgery: 2 weeks Hip,/Knee/Ankle Surgery: 4 weeks Fracture repair: 6 weeks Return to Work Your return to work depends on what surgery was done and what type of work you do. Please bring any paperwork your employer needs completed to your first post-operative visit. Also, bring a description of your job duties, as this helps us to understand what risks you may face at work. Travel Avoid long distance travel (greater than 1 hour) in airplanes and cars for the first 6 weeks after surgery. If you must travel, you need to have a Doppler ultrasound done before you travel to rule out a blood clot in your legs. Follow-up You should have a follow-up appointment already scheduled 1-2 days after surgery. If not, please contact our office to make this appointment before you leave the hospital. When to call the office It is normal to have swelling and bruising in the limb that was operated on. This will improve with time. It is also normal to have fevers for the first 2 days after surgery. Reasons you should call your doctor include: Uncontrolled pain; Nausea, vomiting, or constipation that does not improve with medication; Fevers over 101.5, chills, sweats; Drainage or bleeding from the wound; Foul odor; Spreading areas of redness; Any other concerns. Contact Information Please call Dr. Steele's office at [phone] with any concerns. Pending Studies at Discharge: No Stand-Alone Forms: [facility] [employer], Smoking Cessation Medications and DC Order Prescriptions: New acetaminophen [Tylenol Extra Strength] 500 mg Tablet 1,000 mg PO Q8 30 Days Qty: 180 0RF oxycodone 5 mg Tablet 5 - 10 mg PO Q4H MDD Max 12 tablets/day. Ongoing PRN (Reason: Postoperative pain control) Qty: 28 0RF diclofenac sodium 75 mg tablet,delayed release (DR/EC) 75 mg PO BID 30 Days Qty: 60 0RF Continued nitroglycerin 0.4 mg tablet, sublingual 0.4 mg sublingual UD PRN (Reason: Chest Pain) Qty: 25 3RF Rx Instructions: DISSOLVE 1 TABLET UNDER THE TONGUE NEEDED FOR CHEST PAIN.( VERIFIED PAT CALL 01/18/22) clopidogrel [Plavix] 75 mg tablet 75 mg PO Q2D Qty: 45 3RF atorvastatin 40 mg tablet 40 mg PO HS Qty: 90 3RF losartan 100 mg tablet 100 mg PO HS Qty: 90 3RF Hold Instructions: Resume on 02/15/23. Hold for 1 week while taking the 50mg Losartan multivitamin [Multiple Vitamins] tablet 1 tab PO QAM amoxicillin 500 mg capsule 500 mg PO UD PRN (Reason: dental procedures) Patient Comments: prior to dental procedures per patient aspirin [Carolin Low Dose Aspirin] 81 mg Tablet,Delayed Release (Dr/Ec) 81 mg PO QAM cyanocobalamin (vitamin B-12) [Vitamin B-12] 5,000 mcg Tablet, Sublingual 5,000 mcg PO QAM vitamin B complex Capsule 1 cap PO QAM Discharge Orders: Discharge Order (Routine); Ordered 01/17/24 Ordered By: Donte Zarate Admission Data Admit Date/Time: 01/16/24 10:06 Attending Provider: Con Steele Admit Provider: Con Steele Primary Care Provider: Geraldo Reyes Other Providers: [facility]
[2024-01-17 10:49] VITALS: BP 151/61; PULSE 73; O2SAT 98
== END 2024-01-17 11:46 | disposition home health service (06) | DRG 470 ==
LOC: ASU 06:41 → 3E 10:06
DX: M54.16 Radiculopathy, lumbar region; M48.061 Spinal stenosis, lumbar region without neurogenic claudication; E78.00 Pure hypercholesterolemia, unspecified; Z79.02 Long term (current) use of antithrombotics/antiplatelets; R73.03 Prediabetes; Z79.82 Long term (current) use of aspirin; I25.10 Atherosclerotic heart disease of native coronary artery without angina pectoris; M16.12 Unilateral primary osteoarthritis, left hip